=== PATIENT | male | born 1930 | race Caucasian/White ===

== ENCOUNTER 2018-02-26 01:17 | Inpatient (IN) | payer OTHER ==
[~2018-02-26] VITALS: Ht 175.3 cm; Wt 106.7 kg
[~2018-02-26 01:17] MED LIST: AMLODIPINE BESYL5 M1 PO; ASPIRIN EC81 M1 PO; ATORVASTATIN CA80 M1 PO; FUROSEMIDE40 M1 PO; LOSARTAN POTAS100 M1 PO; MAGNESIUM500 M2 PO; METAMUCIL PACK3.4 GM PO; MULTIVITAMINS1 EAC9 PO; NOVOLIN R100 UNIT/1 SC; TOPROL XL25 M1 PO
--- NOTE | 2018-02-26 10:23 | Operative Report ---
Operative/Inv Procedure Report Surgery Date: 02/26/18 Name of Procedure: #1 removal of previously placed unicompartmental arthroplasty Revision total knee arthroplasty Pre-Operative Diagnosis: #1 history of previously placed unicompartmental arthroplasty Fractured femoral component Post-Operative Diagnosis: Same Estimated Blood Loss: less than 50ml Surgeon/Robotics Application Engineer: Layo SAMAYOA,Frantz José PA Anesthesia: block Implants: Lolis triathlon total knee system-size 4 cruciate retaining femoral component, size 4 tibial component with a 10 mm augment on the medial side, 31 patella, 11 mm cruciate retaining polyethylene Drains: None Specimens: Fracture femoral component, tibial component of the unicompartmental arthroplasty and the polyethylene insert Bone from the distal femur and proximal tibia and patella Culture sensitivity, Gram stain synovial fluid Microbiology: Urine Tourniquet: 73 minutes Complications: None Condition: Stable Operative Indication: Patient is an 87-year-old man who has a history of a unicompartmental arthroplasty in the right side in the early 1999. This was done in [place]. Recently patient developed increased pain and swelling of the right knee. Evaluation was done at our office. The x-rays revealed a fractured femoral component. Due to these findings as well as patient's severe symptoms, recommendation for removal of unicompartmental arthroplasty and revision to a total knee arthroplasty was made. Risks benefits and expectations of the surgical procedure were discussed which included but were not limited to persistent knee pain, need for subsequent surgery, infection, DVT, injury to blood vessel or nerve, anesthesia risks. Patient wished to proceed with the revision surgery Operative/Procedure Note Note: Patient was brought to the operating room and transferred to the operating table. Once under appropriate anesthesia the right lower extremity was prepped and draped in standard fashion. Reoperative IV antibiotics were given prophylactically. The previously medial parapatellar incision needed to be used. The incision was taken down sharply to the retinaculum. A medial retinacular approach was used to enter the knee joint. Soft tissue balancing medially was completed for proper exposure. The components were identified the posterior condylar portion of the femoral component was completely loose. It was removed by hand. The anterior aspect of the same component was dislodged easily with the osteotome. This was done with minimal bone loss. I removed the cement mantle from the distal femur. I turned my attention to the tibia. I used an osteotome to undermine the component. It came out as one piece. It was removed and taken to the back table for sending to pathology. Cement mantle was removed. Copious irrigation followed. There was significant bone loss from the original bone cut from his original surgery. This would need to be augmented. There was not conducive to cutting across to the lateral side as a flat cut. Therefore step cut was made a 10 mm augment would need to be used on the medial side. The lateral side was cut as a primary cut in the medial side was cut as a freshening cut only later on the case. I proceeded to finish the preparation of the femur. This femur was sized to a size 4. Size 4 cutting guide was pinned in place and cuts were made while protecting soft tissues as always. I then turned my attention to the tibia.. I use an intramedullary tibial guide to pin the cutting block in position for a standard cut from the lateral plateau and a freshening cut on the medial plateau which also would need to be augmented a 10 mm which was confirmed during this part of the case. Cuts were made soft tissues were protected. The PCL was recessed appropriately and was preserved. Trial was used at that point to determine soft tissue balancing. I was satisfied with the balancing. I then turned my attention back to the patella. The patella was measured and the appropriate thickness was removed and then replaced the size 31 patella. The 3 lug holes were drilled. The knee through range of motion. I was satisfied with the tracking. However the tibial component would need to be finished. The tibial punch was used after the reaming was completed in the proximal aspect of the tibia. There was no night need for any offsetting based on my findings. Once this was done all this was removed from the knee. Copious irrigation the followed. Cement was being mixed on the back table and the tibial component was constructed on the back table. Once the cement was ready was applied to the dry clean bony surfaces of the tibia. The size 4 tibial component was impacted in place with the appropriate rotation based on previous placement of the trial. This was impacted in place excess cement was removed with curettes. Cement was applied to the dry clean bony surfaces of distal femur. The size 4 femoral component was impacted in place and excess cement was removed with curettes. The polyethylene trial was impacted in place and the knee was taken out to full extension. Cement was applied to the dry clean bony surfaces of the patellar component. Patella was impacted in place and excess cement was removed with a knife. Once the cement was hardened to the knee through range of motion. I was satisfied with the 11 mm polyethylene insert. Full extension. Good mid flexion stability. Full flexion to gravity. Excellent patellofemoral tracking. After copious irrigation the trial polyethylene was removed. The tibial tray was irrigated. I made sure there was no remaining soft tissue, bone fragments or cement fragments within the tibial tray and then I impacted the definitive size 11 mm cruciate retaining polyethylene. Again stability was confirmed. The locking mechanism was confirmed. Hemostasis was obtained after the tourniquet was deflated at 73 minutes. Patient did have some significant third spacing and some edematous changes preoperatively and this was noted. After copious irrigation and hemostasis being obtained the neck was closed with interrupted #1 Vicryl sutures which included the quadricep extension. Subcutaneous tissues closed in 2 layers with 2-0 Vicryl and skin was closed with a running 3-0 Vicryl suture with the knee in flexion. Appropriate dressings were applied and patient was awakened and taken to recovery room in good condition. Blood loss was 100 mL Discharge Disposition: PACU
--- NOTE | 2018-02-26 14:59 | Cons- Medical ---
Emily Jaffemichelet 02/26/18 1458: General Information and HPI Consulting Request Date of Consult: 02/26/18 Requested By: Layo SAMAYOA,Arnav Reason for Consult: postop bradycardia Source of Information: patient Exam Limitations: no limitations History of Present Illness: Mr. Conley is a 87 YO male with past medical history of insulin-dependent diabetes mellitus, hyperlipidemia, hypertension is day 0 status post removal of previously placed unicompartmental arthroplasty, revision total knee arthroplasty for fractured femoral component after having recent onset of increased pain and swelling of the right knee. He was evaluated for this at outpatient orthopedic office by after x-rays revealed a fractured femoral component. It was decided to plan for removal of unicompartmental arthroplasty and revision to a total knee arthroplasty due to severe symptoms and findings of fractured femoral component. The medical team was consulted postoperatively due to findings of bradycardia postoperatively and for medical management of his chronic medical issues. Allergies/Medications Allergies: Coded Allergies: No Known Allergies (02/16/18) Home Med List: Amlodipine Besylate 5 MG TABLET 1 TAB PO DAILY CARDIAC (Reported) Aspirin (Ecotrin*) 81 MG TABLET.DR 1 TAB PO 3XW CARDIAC (Reported) Atorvastatin Calcium 80 MG TABLET 1 TAB PO DAILY CHOLESTEROL (Reported) Furosemide 40 MG TABLET 1 TAB PO DAILY CARDIAC (Reported) Insulin Regular (Novolin R Inj) 1,000 UNITS/10 ML DOTTY 76 UNITS SC SEE ADMIN CRITERIA DIABETES (Reported) Losartan Potassium 100 MG TABLET 1 TAB PO DAILY CARDIAC (Reported) Magnesium Oxide (Magnesium) 500 MG CAPSULE 1 CAP PO BID SUPPLEMENT (Reported) Metoprolol Succ XL (Toprol XL) 25 MG TAB 1 TAB PO DAILY CARDIAC (Reported) Multiple Vitamin (Multivitamins) 1 EACH TABLET 1 TAB PO DAILY SUPPLEMENT ( Reported) Psyllium Hydrophylic Muciloid (Metamucil Packet) 3.4 GRAM POWD.PACK SUPPLEMENT (Reported) Current Medications: Current Medications Sig/Aubrey Start time Last Medication Dose Route Stop Time Status Admin Acetaminophen 0 .STK-MED ONE 02/26 858 DC PO Acetaminophen 650 MG ONCE 02/26 0000 NR PO 02/26 2359 Celecoxib 400 MG ONCE 02/26 0000 NR PO 02/26 2359 Dexamethasone 0 .STK-MED ONE 02/26 858 DC .ROUTE Fentanyl Citrate 0 .STK-MED ONE 02/26 1017 DC .ROUTE Gabapentin 0 .STK-MED ONE 02/26 0859 DC PO Gabapentin 300 MG ONCE 02/26 0000 NR PO 02/26 235 Midazolam HCl 0 .STK-MED ONE 02/26 1017 DC .ROUTE Morphine Sulfate 0 .STK-MED ONE 02/26 1018 DC .ROUTE Oxycodone HCl 0 .STK-MED ONE 02/26 0858 DC PO Oxycodone HCl 10 MG ONCE 02/26 0000 NR PO 02/26 2359 Scopolamine HBr 0 .STK-MED ONE 02/26 0858 DC TOP Scopolamine HBr 1 PAT ONCE 02/26 0000 NR TOP 02/26 235 Tranexamic Acid 0 .STK-MED ONE 02/26 1035 DC IV Vancomycin HCl 1,750 MG ONCE 02/26 0000 NR Sodium Chloride 500 ML IV 02/26 2359 Warfarin Sodium 7.5 MG COUMADIN 1700 ONE 02/26 1700 UNVr PO 02/26 1701 Review of Systems Review of Systems Constitutional: Denies: chills, diaphoresis, fever, malaise. EENTM: Denies: blurred vision, double vision, visual changes. Cardiovascular: Reports: edema, peripheral edema. Denies: orthopena. Respiratory: Reports: cough. Denies: hemoptysis, orthopnea, short of breath, sputum production, stridor. GI: Denies: abdominal pain, bloating, constipation. Genitourinary: Reports: no symptoms. Musculoskeletal: Reports: joint pain. Skin: Reports: no symptoms. Past History Surgical History Surgical History: hemiarthroplasty Psychosocial History Services at Home: None Smoking Status: Unknown If Ever Smoked Functional Ability ADLs Independent: dressing, eating, toileting, bathing. Ambulation: independent IADLs Independent: shopping, housework, finances, telephone. Exam & Diagnostic Data Last 24 Hrs of Vital Signs/I&O .. Physical Exam General Appearance: alert, awake, comfortable Head: atraumatic, normal appearance Eyes: Bilateral: normal appearance. Neck: normal inspection, supple Respiratory: normal breath sounds, chest non-tender Cardiovascular: regular rate/rhythm Gastrointestinal: normal bowel sounds Extremities: normal inspection Last 24 Hrs of Labs/Eduar: Laboratory Tests 02/26/18 1114: Lymphocytes 22, % Normal PMNs 33, Misc Hematology Test 45, Fluid WBC 594 H, Fld Total RBCs Counted 87682 H Diagnostic Data EKG Results sinus bradycardia, rate into 50's Assessment/Plan Assessment/Plan In summary,Mr. Conley is a 87 YO male with past medical history of insulin- dependent diabetes mellitus, hyperlipidemia, hypertension is day 0 status post removal of previously placed unicompartmental arthroplasty, revision total knee arthroplasty for fractured femoral component after having recent onset of increased pain and swelling of the right knee. He was evaluated for this at outpatient orthopedic office by after x-rays revealed a fractured femoral component. It was decided to plan for removal of unicompartmental arthroplasty and revision to a total knee arthroplasty due to severe symptoms and findings of fractured femoral component. Medical team has been consutled due to postop bradycardia and for management of hs chronic medica issues. Problem list along with assessment and plan. #Bradycardia * Continue to monitor on case monitor. * Check EKG and troponin, hold beta-jarvis. * Check TSH, free T4. * Check cbc, Bep today. * EKG revealed sinus bradycardia , no evidence of any block. * d/c scopolamine patch - disucssed with nursing. * no symptoms as such. * cardio consult #hypertension. * Continue to monitor vitals, continue blood pressure monitoring. * He takes amlodipine 5 mg 1 tablet daily and losartan 100 mg daily, followed by Toprol XL 25 mg daily. * We will watch the blood pressure today and resume the medications once blood pressure more stable, starting with amlodipine first and losartan. * We will hold the beta-jarvis due to bradycardia. # History of hyperlipidemia. * Continue atorvastatin 80 mg p.o. daily once can tolerate by mouth. # h/o IDDM * ct to monitor FS * Novolin SS * At home he takes 72 units of novolin in the morning with no basal insulin, as per his PCP recommendation, here we will start medium dose SS for now and then adjust as needed per his FS. * CC-3 diet * once can eat and tolerate PO, switch to novolog SS * hold all antidiabetic medications. Problem List: 1. Status post right knee replacement 2. Diabetes mellitus type 1 3. History of - hypertension 4. Hypercholesterolemia Consult Acknowledgment - Thank you for your consult request. Alan SAMAYOA,Nisa 02/26/18 0043: Assessment/Plan Consult Acknowledgment - Thank you for your consult request. Attending MD Review Statement Attending Statement Attending MD Statement: examined this patient, discuss w/resident/PA/HOTEL GUEST SERVICE AGENT, agreed w/resident/PA/HOTEL GUEST SERVICE AGENT, discussed with family, reviewed EMR data (avail), discussed with nursing, reviewed images, amended to note Attending Assessment/Plan: 87 y/o M with pmh sig for insulin-dependent diabetes mellitus, hyperlipidemia, hypertension, status post revision of right total knee arthroplasty for fractured femoral component postop day 0. Medicine consult was obtained secondary to patient found bradycardic postoperatively. Apparently patient's heart rate went down to 50s. Currently his heart rate is 68. Reviewing the recent nuclear stress test report it was evident that patient's heart rate is likely in the lower range at baseline. His heart rate was in 50s on the nuclear stress imaging. Of note patient also takes beta-jarvis which she took this morning. Patient himself denies any chest pain, shortness of breath, palpitations, dizziness. There is no current EKG in the chart yet. Vital Signs Date Time Temp Pulse Resp B/P B/P Pulse O2 O2 Flow FiO2 Mean Ox Delivery Rate 02/26 1637 97.6 68 18 128/50 97 Nasal 2.0L Cannula on exam; aox3, nad. cv; s1,s2, rrr, randi. resp; clear abd; soft, nt, bs+ ms; right le is wrapped in JOHN wrap. Laboratory Tests 02/26 1114 Hematology Lymphocytes (%) 22 % Normal PMNs (%) 33 Misc Hematology Test (%) 45 Other Body Source Fluid WBC (0 - 5 /CUMM) 594 H Fld Total RBCs Counted (0 /CUMM) 40998 H Assessment and recommendations: 87 y/o M with pmh sig for insulin-dependent diabetes mellitus, hyperlipidemia, hypertension, status post revision of right total knee arthroplasty for fractured femoral component postop day 0. Medicine consult was obtained secondary to patient found bradycardic postoperatively. Apparently patient's heart rate went down to 50s. Currently his heart rate is 68. Blood pressure is stable. We recommend to hold the beta-jarvis for now. Please check an EKG. If there is any evidence of heart block, patient will require echocardiogram. Please consult cardiology. Please check thyroid function studies. Monitor on telemetry. Of note patient also has a scopolamine patch behind his left ear. I recommend to discontinue that. Scopolamine can also cause bradycardia. Patient takes metformin and insulin Novolin at home. He will be continued on sliding scale insulin and monitor Accu-Cheks. If blood sugars start to run high then will consider adding a basal insulin. Continue antihypertensives if his blood pressure allows. DVT prophylaxis management postoperatively will be up to the orthopedic team. Recommend ambulation with physical therapy and incentive spirometry. Further postop care will be up to orthopedic. Thank you very much for allowing us to participate in the care of this patient. Will follow along with you
--- NOTE | 2018-02-26 15:12 | Surgical Discharge Summary ---
Visit Information Visit Dates Admission Date: 02/26/18 Discharge Date: 03/01/2018 History of Present Illness Chief Complaint: right knee pain Medical History History of MRSA: No History of VRE: No History of CDIFF: No Isolation History: Standard Pneumonia Vaccine: 04/11/10 Influenza Vaccine: 04/11/12 Surgical History Pertinent Surgical History: knee replacement Psychosocial History Who Do You Live With? Family Services at Home: None What is Your Primary Language? Sami Review of Systems: see H&P Hospital Course Course Attending Physician: Layo SAMAYOA,[facility] Primary Care Physician: Jose SAMAYOA,[place] Hospital Course: Patient was admitted to the hospital for an elective revision of right total knee replacement. The procedure was tolerated well and patient was transferred to a general surgical floor. Diet was advanced and tolerated. The patient was evaluated and treated by physical therapy. He was slow to ambulate. Post op he experienced some bradycardia with a heart rate in the 50's. He was evaluated by cardiology and the medical service. It was felt this was temporary and it was recommended to hold the metoprolol which can be titrated as an outpatient. He was able to move his bowels post op. He was cleared by PT for home PT. At the time of hospital discharge, the vital signs were stable, neurovascular status was intact, and pain was controlled with the use of oral pain medications. He was on coumadin at discharge with a therapeutic INR which will be monitored by home nursing. Allergies: Coded Allergies: No Known Allergies (02/16/18) Significant Procedures: 02/26/18: revision right total knee replacement Disposition Summary Disposition Principal Diagnosis: pain r/t previous right knee replacement Additional Diagnosis: sp revision right total knee replacement, bradycardia Discharge Disposition: home health services Discharge Instructions General Discharge Information Code Status: Full Code Patient's Diet: resume previous diet Patient's Activity: wbat Follow-Up Instructions/Appts: Call to be seen in 2 weeks Medications at Discharge Discharge Medications: Stop taking the following medications: Metoprolol Succ XL (Toprol XL) 25 MG TAB ORAL DAILY Continue taking these medications: Insulin Regular (Novolin R Inj) 1,000 UNITS/10 ML DOTTY 76 Units SC SEE INSTRUCTIONS Amlodipine Besylate (Amlodipine Besylate) 5 MG TABLET 1 Tablet ORAL DAILY Losartan Potassium (Losartan Potassium) 100 MG TABLET 1 Tablet ORAL DAILY Furosemide (Furosemide) 40 MG TABLET 1 Tablet ORAL DAILY Atorvastatin Calcium (Atorvastatin Calcium) 80 MG TABLET 1 Tablet ORAL DAILY Aspirin (Ecotrin*) 81 MG TABLET.DR 1 Tablet ORAL Three times a week Multiple Vitamin (Multivitamins) 1 EACH TABLET 1 Tablet ORAL DAILY Magnesium Oxide (Magnesium) 500 MG CAPSULE 1 Capsule ORAL TWICE DAILY Psyllium Hydrophylic Muciloid (Metamucil Packet) 3.4 GRAM POWD.PACK Metformin HCl (Metformin HCl) 1,000 MG TABLET 1 Tablet ORAL TWICE DAILY Start taking the following new medications: Oxycodone HCl/Acetaminophen (Percocet 5-325 MG Tablet) 5 MG-325 MG TABLET 1-2 Tablet ORAL EVERY 4 HOURS NEEDED as needed for PAIN Qty = 30 No Refills Acetaminophen (Tylenol Extra Strength) 500 MG TABLET 1 Tablet ORAL THREE TIMES DAILY as needed for MILD PAIN Qty = 30 No Refills Instructions: NOT TO EXCEED 4000MG IN 24HRS, ALTERNATE WITH PERCOCET NEEDED
--- NOTE | 2018-02-26 15:17 | Patient Discharge Instructions ---
Discharge Instructions General Discharge Information You were seen/treated for: right knee pain r/t previous right knee replacement You had these procedures: revision right knee replacement Watch for these problems: Increasing pain despite the use of pain medication Increasing redness, warmth or swelling Drainage of any type from incision Inability to bear weight on operative leg Persistent nausea and vomiting Fever greater than 101.5 degrees Call Surgeon to remove: Other Do not soak the wound: Yes Daily wet to dry dressings: No No bath, but you may shower: Yes Other wound care: Keep wound clean and dry. No ointments or lotions of any type on or near incision at any time. Your dressing will be changed by your nurse on the second day after your surgery. Daily dry dressing changes are recommended each day thereafter. Do not soak your wound in a bath or pool at any time until otherwise indicated by your surgeon. You may shower. Special Instructions: Stop taking Metoprolol per Dr. Wheeler. FU with bicycle taxi driver in 1-2 weeks as they may want to further adjust cardiac medication. Follow up with Dr Aris downs 2 weeks for diabetic management Coumadin to be dosed according to INR. Goal INR 2-2.5 Diet Continue normal diet: Yes Activity Full Activity/No Limits: No Activity Self Limited: Yes Pounds, do NOT lift more than: 10 (x 2weeks) Activity Limited to: Weight bear as tolerated (with rolling walker) Additional ACTIVITY Info: use assistive devices as needed Acute Coronary Syndrome Inclusion Criteria At DC or during hospital stay patient has or had the following: ACS DIAGNOSIS No Discharge Core Measures Meds if any: Prescribed or Continued at Discharge Meds if any: NOT Prescribed or Continued at Discharge Congestive Heart Failure Inclusion Criteria At DC or during hospital stay patient has or had the following: CHF DIAGNOSIS No Discharge Core Measures Meds if any: Prescribed or Continued at Discharge Meds if any: NOT Prescribed or Continued at Discharge Cerebrovascular accident Inclusion Criteria At DC or during hospital stay patient has or had the following: CVA/TIA Diagnosis No Discharge Core Measures Meds if any: Prescribed or Continued at Discharge Meds if any: NOT Prescribed or Continued at Discharge Venous thromboembolism Inclusion Criteria VTE Diagnosis No VTE Type NONE VTE Confirmed by (Test) NONE Discharge Core Measures - Per Current guidelines, there needs to be overlap - treatment for the first 5 days of Warfarin therapy. - If discharged on Warfarin prior to 5 days of - overlap therapy, the patient will need to be - assessed for post discharge needs including - *Post discharge parental anticoagulation - *Warfarin and/or parental anticoagulation education - *Follow up date to check INR post discharge At least 5 days overlap therapy as Inpatient No Meds if any: Prescribed or Continued at Discharge Note: Overlap Therapy is Warfarin and Anticoagulant Meds if any: NOT Prescribed or Continued at Discharge
--- NOTE | 2018-02-26 15:20 | Admission Core Measures ---
Acute Coronary Syndrome (CM) ACS Core Measures Acute Coronary Syndrome Diagnosis No Congestive Heart Failure (NEW) CHF Core Measures Congestive Heart Failure Diagnosis No Cerebrovascular Accident CVA Core Measures CVA/TIA Diagnosis No Venous Thromboembolism VTE Core Rayne (View Protocol) VTE Risk Factors Surgery No Mechanical VTE Prophylaxis d/t N/A MechProphylax Ordered No VTE Pharm Prophylaxis d/t NA PharmProphylax ordered Problem List As ranked by this Provider includes Assessment & Plan 1. Status post right knee replacement 2. Primary osteoarthritis of right knee HOME MEDS Home Med List Amlodipine Besylate 5 MG TABLET 1 TAB PO DAILY CARDIAC (Reported) Aspirin (Ecotrin*) 81 MG TABLET.DR 1 TAB PO 3XW CARDIAC (Reported) Atorvastatin Calcium 80 MG TABLET 1 TAB PO DAILY CHOLESTEROL (Reported) Furosemide 40 MG TABLET 1 TAB PO DAILY CARDIAC (Reported) Insulin Regular (Novolin R Inj) 1,000 UNITS/10 ML DOTTY 76 UNITS SC SEE ADMIN CRITERIA DIABETES (Reported) Losartan Potassium 100 MG TABLET 1 TAB PO DAILY CARDIAC (Reported) Magnesium Oxide (Magnesium) 500 MG CAPSULE 1 CAP PO BID SUPPLEMENT (Reported) Metoprolol Succ XL (Toprol XL) 25 MG TAB 1 TAB PO DAILY CARDIAC (Reported) Multiple Vitamin (Multivitamins) 1 EACH TABLET 1 TAB PO DAILY SUPPLEMENT ( Reported)
--- NOTE | 2018-02-26 16:36 | PN- Orthopedic ---
Subjective Subjective: Pt denies any pain at this time and says he is feeling well. Denies any nausea, vomiting, CP, SOB, dizziness or headache. Has not been out of bed yet. Awaiting and eager for PT to begin. Objective Vital Signs and I&Os See EMR. HR noted to be 40's-50's on telemertry monitor. Physical Exam: General: Elderly male, lying in bed, NAD. Nasal cannula in place. Cardio: Bradycardic. Regular rhyhtm. S1 and S2 heard. No murmurs, rubs or gallops. Pulmonary: Symmetric, non-labored rise and fall of the chest. Clear breath sounds in anterior and posterior lung guerin. No wheezes, rhonchi or rales. Abdomen: Soft, non-tender, non-distended. Normoactive bowel sounds heard. Extremities: Dressing was clean, dry, and intact on the right leg with an ice pack in place. Gross sensation intact and equal in both feet. Plantar and dorsiflexion 5/5 bilaterally. Dorsalis pedis pulses palpable. Posterior tibialis pulses not appreciated. Calves are soft and non-tender to palpation bilaterally. 2+ edema noted on the feet bilaterally. Current Medications: Current Medications Sig/Aubrey Start time Last Medication Dose Route Stop Time Status Admin Acetaminophen 0 .STK-MED ONE 02/26 858 DC PO Acetaminophen 650 MG ONCE 02/26 0000 DC PO 02/26 2359 Amlodipine Besylate 5 MG DAILY 02/27 900 UNVr PO Atorvastatin Calcium 80 MG DAILY 02/27 900 UNVr PO Celecoxib 400 MG DAILY 02/27 900 UNir PO Celecoxib 400 MG ONCE 02/26 0000 DC PO 02/26 2359 Dexamethasone 0 .STK-MED ONE 02/26 0858 DC .ROUTE Docusate Sodium 100 MG BID PRN 02/26 1100 UNVr PO Fentanyl Citrate 0 .STK-MED ONE 02/26 1017 DC .ROUTE Furosemide 40 MG DAILY 02/27 900 UNVr PO Gabapentin 0 .STK-MED ONE 02/26 0859 DC PO Gabapentin 300 MG ONCE 02/26 0000 DC PO 02/26 235 Insulin Aspart 0 TIDAC 02/26 1200 UNVr SC Losartan Potassium 100 MG DAILY 02/27 0900 UNVr PO Magnesium Oxide 500 MG BID 02/26 2100 UNVr PO Midazolam HCl 0 .STK-MED ONE 02/26 1017 DC .ROUTE Morphine Sulfate 2 MG Q3P PRN 02/26 1615 UNVr IV Morphine Sulfate 0 .STK-MED ONE 02/26 1018 DC .ROUTE Ondansetron HCl 4 MG Q6P PRN 02/26 1615 UNVr IV Oxycodone HCl 0 .STK-MED ONE 02/26 0858 DC PO Oxycodone HCl 10 MG ONCE 02/26 0000 DC PO 02/26 2359 Oxycodone/ 1 TAB Q4P PRN 02/26 1615 UNVr Acetaminophen PO Oxycodone/ 2 TAB Q4P PRN 02/26 1615 UNVr Acetaminophen PO Polyethylene Glycol 17 GM DAILY PRN 02/26 1100 UNVr PO Scopolamine HBr 0 .STK-MED ONE 02/26 0858 DC TOP Scopolamine HBr 1 PAT ONCE 02/26 0000 DC TOP 02/26 2359 Senna/Docusate Sodium 2 TAB AT BEDTIME NEED.. 02/26 161 UNVr PO Sodium Chloride 1,000 ML .[id number] 02/26 1615 UNVr IV Tranexamic Acid 0 .STK-MED ONE 02/26 1035 DC IV Vancomycin HCl 1,750 MG ONCE ONE 02/26 2200 UNir Sodium Chloride 250 ML IV 02/26 2259 Vancomycin HCl 1,750 MG ONCE 02/26 0000 DC Sodium Chloride 500 ML IV 02/26 2359 Warfarin Sodium 7.5 MG COUMADIN 1700 ONE 02/26 1700 AC PO 02/26 1701 Assessment/Plan Assessment/Plan A: Pt is an 87 year old male POD #0 s/p right total knee revision, with a past medical history including DM, HTN and PVCs. Pt noted to be bradycardic post-op, asymptomatic, pre-operatively had extensive cardiac workup that was negative. Pain is well controlled. P: Appreciate medical input. Will follow up labs and EKG. Pt placed on telemetry. Pain control as needed. Took Beta Aldo this morning, no other cardiac meds to be given tonight. Will reassess heart rate in the am. PT to see patient in morning, WBAT. Pt on coumadin, monitor PT and INR. 7.5 mg tonight. Will discuss with attending. Core Measures Venous Thromboembolism VTE Risk Factors Surgery No Mechanical VTE Prophylaxis d/t N/A MechProphylax Ordered No VTE Pharm Prophylaxis d/t NA PharmProphylax ordered
[2018-02-26 16:37] VITALS: BP 128/50
[2018-02-26 17:45] LABS: ABSOLUTE BASOPHIL COUNT 0 /CUMM (0.0-0.2); ABSOLUTE EOSINOPHIL COUNT 0 /CUMM (0.0-0.7); ABSOLUTE GRANULOCYTE CT 11.7 /CUMM (1.4-6.5); ABSOLUTE LYMPH COUNT 0.7 /CUMM (1.2-3.4); ABSOLUTE MONOCYTE COUNT 0.2 /CUMM (0.10-0.60); BASOPHIL % 0.1 % (0.0-2.0); EOSINOPHIL % 0.1 % (0-5); HEMATOCRIT 36.6 % (42-52); MEAN CORPUSCULAR HGB CONC 32.8 G/DL (33.0-37.0); MEAN CORPUSCULAR VOLUME 91.3 FL (80.0-94.0); MEAN PLATELET VOLUME 8.8 FL (7.4-10.4); PLATELET COUNT 221 /CUMM (130-400); RBC DISTRIBUTION WIDTH 14.5 % (11.5-14.5); RED BLOOD CELL CT 4.01 /CUMM (4.70-6.10); WHITE BLOOD CELL COUNT 12.6 /CUMM (4.8-10.8)
[2018-02-26 18:44] LABS: GRANULOCYTE % 92.6 % (42.2-75.2)
[2018-02-26 22:20] VITALS: BP 130/58
[2018-02-27 02:00] VITALS: BP 114/52
[2018-02-27 06:31] VITALS: BP 124/62
--- NOTE | 2018-02-27 07:27 | PN- Medicine Consult ---
Royal Jaffe 02/27/18 0727: Assessment/PlanMedical Consult Assessment/Plan Assessment: This a 87-year-old male with past medical history of insulin-dependent diabetes mellitus, hyperlipidemia, hypertension, status post removal of previously placed unicompartmental arthroplasty, revision total knee arthroplasty for fractured femoral component day 1 today after having worsening pain and swelling of the right knee. Medical team was consulted for management of bradycardia and other chronic medical issues. He seems to be doing good overall, his EKG showed sinus bradycardia, his heart rate continues to be in the 50s today morning, TSH and free T4 were within normal limit, he did not seem to have any symptoms secondary to bradycardia, no evidence of any block on the EKG, it was noted that his sugars were running high about 300 last night as well as this morning. His insulin regimen will need to be adjusted, perhaps we will add basal insulin in addition to medium dose sliding scale. Otherwise his vitals are stable. Plan: Mr. Conley is a 87 YO male with past medical history of insulin-dependent diabetes mellitus, hyperlipidemia, hypertension is day 1 status post removal of previously placed unicompartmental arthroplasty, revision total knee arthroplasty for fractured femoral component after having recent onset of increased pain and swelling of the right knee. Medical team has been consutled due to postop bradycardia and for management of hs chronic medica issues. Problem list along with assessment and plan. #Bradycardia * Continue to monitor on engine monitor. * Check EKG and troponin - negative, ct to hold beta-jarvis. * Check TSH, free T4,TSH and Free t4 WNL * Check cbc, Bep today. * EKG revealed sinus bradycardia , no evidence of any block. * cardio consult #hypertension. * Continue to monitor vitals, continue blood pressure monitoring. * He takes amlodipine 5 mg 1 tablet daily and losartan 100 mg daily. * We will watch the blood pressure today and resume the medications once blood pressure more stable, starting with amlodipine first and losartan. * We will hold the beta-jarvis due to bradycardia. # History of hyperlipidemia. * Continue atorvastatin 80 mg p.o. daily once can tolerate by mouth. # h/o IDDM * ct to monitor FS * Novolin SS * At home he takes 72 units of novolin in the morning with no basal insulin, as per his PCP recommendation, here we will start medium dose SS for now and then adjust as needed per his FS. * CC-3 diet * once can eat and tolerate PO, switch to novolog SS * hold all antidiabetic medications. Problem List: 1. Diabetes mellitus type 1 2. History of - hypertension 3. Hypercholesterolemia 4. Primary osteoarthritis of right knee 5. Status post right knee replacement Subjective Subjective: I have seen and examined the patient this morning, no new complaints. Review of Systems Constitutional: Reports: see HPI. Objective Last 24 Hrs of Vital Signs/I&O Vital Signs Date Time Temp Pulse Resp B/P B/P Pulse O2 O2 Flow FiO2 Mean Ox Delivery Rate 02/27 1015 53 134/50 02/27 1014 53 134/50 02/27 0631 98.1 64 18 124/62 95 Nasal Cannula 02/27 0200 97.8 65 20 114/52 93 Room Air 02/26 2220 97.8 57 18 130/58 96 Nasal Cannula 02/26 1637 97.6 68 18 128/50 97 Nasal 2.0L Cannula Intake & Output 02/27 1600 02/27 0800 02/27 0000 Intake Total 600 600 Output Total 350 400 Balance 250 200 Intake, IV 600 600 Output, Urine 350 400 Current Medications: Current Medications Sig/Aubrey Start time Last Medication Dose Route Stop Time Status Admin Acetaminophen 650 MG ONCE 02/26 0000 DC PO 02/26 2359 Amlodipine Besylate 5 MG DAILY 02/27 09 AC PO Atorvastatin Calcium 80 MG DAILY 02/27 0900 AC 02/27 PO 1015 Celecoxib 400 MG DAILY 02/27 0900 AC 02/27 PO 1015 Celecoxib 400 MG ONCE 02/26 0000 DC PO 02/26 2359 Docusate Sodium 100 MG BID PRN 02/26 1100 AC PO Furosemide 40 MG DAILY 02/27 0900 AC 02/27 PO 1015 Gabapentin 300 MG ONCE 02/26 0000 DC PO 02/26 2359 Insulin Aspart 0 TIDAC 02/26 1700 AC 02/27 SC 0847 Insulin Aspart 0 TIDAC 02/26 1200 DC SC Losartan Potassium 100 MG DAILY 02/27 0900 AC PO Magnesium Oxide 400 MG BID 02/26 2100 AC 02/27 PO 1015 Morphine Sulfate 2 MG Q3P PRN 02/26 1615 AC IV Ondansetron HCl 4 MG Q6P PRN 02/26 1615 AC IV Oxycodone HCl 10 MG ONCE 02/26 0000 DC PO 02/26 2359 Oxycodone/ 1 TAB Q4P PRN 02/26 1615 AC 02/27 Acetaminophen PO 0803 Oxycodone/ 2 TAB Q4P PRN 02/26 1615 AC Acetaminophen PO Polyethylene Glycol 17 GM DAILY PRN 02/26 1100 AC PO Scopolamine HBr 1 PAT ONCE 02/26 0000 DC TOP 02/26 2359 Senna/Docusate Sodium 2 TAB AT BEDTIME NEED.. 02/26 161 AC PO Sodium Chloride 1,000 ML .[id number] 02/26 1615 DC 02/26 IV 1736 Vancomycin HCl 1,750 MG ONCE ONE 02/26 2200 DC 02/26 Sodium Chloride 500 ML IV 02/26 235 2207 Vancomycin HCl 1,750 MG ONCE 02/26 0000 DC Sodium Chloride 500 ML IV 02/26 235 Warfarin Sodium 7.5 MG COUMADIN 1700 ONE 02/26 1700 DC 02/26 PO 02/26 1701 1819 Results Last 24 Hrs Lab/Eduar Results: Laboratory Tests 02/27/18 0700: Anion Gap 6, Estimated GFR > 60, BUN/Creatinine Ratio 26.0 H, PT 12.1, INR 1.11 , CBC w Diff NO MAN DIFF REQ, RBC 3.46 L, MCV 91.3, MCH 30.5, MCHC 33.4, RDW 14.0, MPV 8.6, Gran % 84.8 H, Lymphocytes % 7.1 L, Monocytes % 8.0, Eosinophils % 0, Basophils % 0.1, Absolute Granulocytes 11.2 H, Absolute Lymphocytes 0.9 L, Absolute Monocytes 1.1 H, Absolute Eosinophils 0, Absolute Basophils 0 02/26/18 170: Anion Gap 7, Estimated GFR > 60, BUN/Creatinine Ratio 21.1, Troponin I < 0.01, TSH 0.566, Free T4 1.47, CBC w Diff NO MAN DIFF REQ, RBC 4.01 L, MCV 91.3, MCH 30.0, MCHC 32.8 L, RDW 14.5, MPV 8.8, Gran % 92.6 H, Lymphocytes % 5.6 L, Monocytes % 1.6 L, Eosinophils % 0.1, Basophils % 0.1, Absolute Granulocytes 11.7 H, Absolute Lymphocytes 0.7 L, Absolute Monocytes 0.2, Absolute Eosinophils 0, Absolute Basophils 0 02/26/18 1114: Lymphocytes 22, % Normal PMNs 33, Misc Hematology Test 45, Fluid WBC 594 H, Fld Total RBCs Counted 46438 H Microbiology 02/26 1114 BODY FLUID: Body Fluid Culture - RES 02/26 111 BODY FLUID: Gram Stain - RES Alan SAMAYOA,Nisa 02/27/18 1142: Attending MD Review Statement Attending Sign Off Attending Cosign Statement: I have: examined this patient, reviewed aval EMR data, personally reviewd images, discussd w/resident/PA/SCHEDULING CLERK, discussed mgmt plan w/alcides, discussed mgmt plan w/pt, agreed w/resident/PA/SCHEDULING CLERK, amended to note. Other Findings: Patient seen and examined, overall doing better. He did complain of some pain earlier in the morning but currently he is doing better. His heart rate remained in 40s-50s range overnight. His thyroid functions are normal. His Beta jarvis was held. Vital Signs Date Time Temp Pulse Resp B/P B/P Pulse O2 O2 Flow FiO2 Mean Ox Delivery Rate 02/27 1015 53 134/50 02/27 1014 53 134/50 02/27 0631 98.1 64 18 124/62 95 Nasal Cannula 02/27 0200 97.8 65 20 114/52 93 Room Air 02/26 2220 97.8 57 18 130/58 96 Nasal Cannula 02/26 1637 97.6 68 18 128/50 97 Nasal 2.0L Cannula on exam; aox3, nad. cv; s1,s2, rrr, bradycardic. resp; clear abd; soft, nt, bs+ ext; + JOHN wrap on rle. Laboratory Tests 02/27 02/26 0700 1700 Chemistry Sodium (137 - 145 mmol/L) 136 L 139 Potassium (3.5 - 5.1 mmol/L) 5.0 4.6 Chloride (98 - 107 mmol/L) 104 106 Carbon Dioxide (22 - 30 mmol/L) 26 25 Anion Gap (5 - 16) 6 7 BUN (9 - 20 mg/dL) 26 H 19 Creatinine (0.7 - 1.2 mg/dL) 1.0 0.9 Estimated GFR (>60 ml/min) > 60 > 60 BUN/Creatinine Ratio (7 - 25 %) 26.0 H 21.1 Troponin I (<0.11 ng/ml) < 0.01 TSH (0.270 - 4.200 uIU/mL) 0.566 Free T4 (0.85 - 1.93 ng/dL) 1.47 Coagulation PT (9.4 - 12.5 SEC) 12.1 INR (0.90 - 1.17) 1.11 Hematology CBC w Diff NO MAN DIFF REQ NO MAN DIFF REQ WBC (4.8 - 10.8 /CUMM) 13.2 H 12.6 H RBC (4.70 - 6.10 /CUMM) 3.46 L 4.01 L Hgb (14.0 - 18.0 G/DL) 10.6 L 12.0 L Hct (42 - 52 %) 31.5 L 36.6 L MCV (80.0 - 94.0 FL) 91.3 91.3 MCH (27.0 - 31.0 PG) 30.5 30.0 MCHC (33.0 - 37.0 G/DL) 33.4 32.8 L RDW (11.5 - 14.5 %) 14.0 14.5 Plt Count (130 - 400 /CUMM) 267 221 MPV (7.4 - 10.4 FL) 8.6 8.8 Gran % (42.2 - 75.2 %) 84.8 H 92.6 H Lymphocytes % (20.5 - 51.1 %) 7.1 L 5.6 L Monocytes % (1.7 - 9.3 %) 8.0 1.6 L Eosinophils % (0 - 5 %) 0 0.1 Basophils % (0.0 - 2.0 %) 0.1 0.1 Absolute Granulocytes (1.4 - 6.5 /CUMM) 11.2 H 11.7 H Absolute Lymphocytes (1.2 - 3.4 /CUMM) 0.9 L 0.7 L Absolute Monocytes (0.10 - 0.60 /CUMM) 1.1 H 0.2 Absolute Eosinophils (0.0 - 0.7 /CUMM) 0 0 Absolute Basophils (0.0 - 0.2 /CUMM) 0 0 Assessment and recommendations: 87 y/o M with pmh sig for insulin-dependent diabetes mellitus, hyperlipidemia, hypertension, status post revision of right total knee arthroplasty for fractured femoral component postop day 1. Medicine consult was obtained secondary to patient found bradycardic postoperatively. Thyroid function tests are normal. Patient remained bradycardic in 40s-50s range overnight. His beta-jarvis is on hold. Recommend cardiology evaluation. Postop care per orthopedic. His blood sugars are not under control and the running in 300s. Recommend resuming home dose of metformin and continue the sliding scale insulin. Patient can be continued on his home regimen upon discharge but will recommend outpatient endocrinology evaluation for diabetes control. Continue the rest of the mx. DVT px: Coumadin per Ortho.
[2018-02-27 08:14] LABS: PT 12.1 SEC (9.4-12.5)
[2018-02-27 08:16] LABS: ABSOLUTE BASOPHIL COUNT 0 /CUMM (0.0-0.2); ABSOLUTE EOSINOPHIL COUNT 0 /CUMM (0.0-0.7); ABSOLUTE GRANULOCYTE CT 11.2 /CUMM (1.4-6.5); ABSOLUTE LYMPH COUNT 0.9 /CUMM (1.2-3.4); ABSOLUTE MONOCYTE COUNT 1.1 /CUMM (0.10-0.60); BASOPHIL % 0.1 % (0.0-2.0); EOSINOPHIL % 0 % (0-5); MEAN CORPUSCULAR HGB 30.5 PG (27.0-31.0); MEAN CORPUSCULAR HGB CONC 33.4 G/DL (33.0-37.0); MEAN CORPUSCULAR VOLUME 91.3 FL (80.0-94.0); MEAN PLATELET VOLUME 8.6 FL (7.4-10.4); PLATELET COUNT 267 /CUMM (130-400); RED BLOOD CELL CT 3.46 /CUMM (4.70-6.10); WHITE BLOOD CELL COUNT 13.2 /CUMM (4.8-10.8)
[2018-02-27 08:30] LABS: HEMATOCRIT 31.5 % (42-52)
--- NOTE | 2018-02-27 08:34 | PN- Orthopedic ---
See Addendum Subjective Subjective: No acute events overnight, no chest pain, no palpitations, no episodes of bradycardia or feeling lightheaded or dizzy. No fever no flulike illness. Pain is controlled. Objective Vital Signs and I&Os Vital Signs Date Time Temp Pulse Resp B/P B/P Pulse O2 O2 Flow FiO2 Mean Ox Delivery Rate 02/27 0631 98.1 64 18 124/62 95 Nasal Cannula 02/27 0200 97.8 65 20 114/52 93 Room Air 02/26 2220 97.8 57 18 130/58 96 Nasal Cannula 02/26 1637 97.6 68 18 128/50 97 Nasal 2.0L Cannula Intake & Output 02/27 1600 02/27 0800 02/27 0000 02/26 1600 02/26 0000 Intake Total 600 600 Output Total 350 400 Balance 250 200 Intake, IV 600 600 Output, Urine 350 400 Physical Exam: Well-developed well-nourished no apparent distress. HEENT: Atraumatic, extraocular motion intact Neck: Supple, no lymphadenopathy Respiratory: No respiratory distress Extremities: No edema RIGHT lower extremity dressing in place, Dressing clean dry and intact Mild joint effusion Range of motion is 0-60. Compression wrap in place. ALPS in place Neurovascularly intact distally Bilateral calves are supple, nontender. Neuro: Alert and oriented x3 Psych: Mood affect normal, normal memory normal judgment. Skin: Warm and dry, no rash on exposed skin Results Last 48 Hours of Labs: Laboratory Tests 02/27 02/26 02/26 0700 1700 1114 Chemistry Sodium (137 - 145 mmol/L) Pending 139 Potassium (3.5 - 5.1 mmol/L) Pending 4.6 Chloride (98 - 107 mmol/L) Pending 106 Carbon Dioxide (22 - 30 mmol/L) Pending 25 Anion Gap (5 - 16) Pending 7 BUN (9 - 20 mg/dL) Pending 19 Creatinine (0.7 - 1.2 mg/dL) Pending 0.9 Estimated GFR (>60 ml/min) > 60 BUN/Creatinine Ratio (7 - 25 %) Pending 21.1 Troponin I (<0.11 ng/ml) < 0.01 TSH (0.270 - 4.200 uIU/mL) 0.566 Free T4 (0.85 - 1.93 ng/dL) 1.47 Coagulation PT (9.4 - 12.5 SEC) 12.1 INR (0.90 - 1.17) 1.11 Hematology CBC w Diff Pending NO MAN DIFF REQ WBC (4.8 - 10.8 /CUMM) Pending 12.6 H RBC (4.70 - 6.10 /CUMM) Pending 4.01 L Hgb (14.0 - 18.0 G/DL) Pending 12.0 L Hct (42 - 52 %) Pending 36.6 L MCV (80.0 - 94.0 FL) Pending 91.3 MCH (27.0 - 31.0 PG) Pending 30.0 MCHC (33.0 - 37.0 G/DL) Pending 32.8 L RDW (11.5 - 14.5 %) Pending 14.5 Plt Count (130 - 400 /CUMM) Pending 221 MPV (7.4 - 10.4 FL) Pending 8.8 Gran % (42.2 - 75.2 %) Pending 92.6 H Lymphocytes % (20.5 - 51.1 %) Pending 5.6 L Monocytes % (1.7 - 9.3 %) Pending 1.6 L Eosinophils % (0 - 5 %) Pending 0.1 Basophils % (0.0 - 2.0 %) Pending 0.1 Absolute Granulocytes (1.4 - 6.5 /CUMM) Pending 11.7 H Absolute Lymphocytes (1.2 - 3.4 /CUMM) Pending 0.7 L Lymphocytes (%) 22 Absolute Monocytes (0.10 - 0.60 /CUMM) Pending 0.2 Absolute Eosinophils (0.0 - 0.7 /CUMM) Pending 0 Absolute Basophils (0.0 - 0.2 /CUMM) Pending 0 % Normal PMNs (%) 33 Misc Hematology Test (%) 45 Other Body Source Fluid WBC (0 - 5 /CUMM) 594 H Fld Total RBCs Counted (0 /CUMM) 32810 H Assessment/Plan Assessment/Plan Pt is an 87 year old male POD #1 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 Will follow up labs and EKG. Perioperative antibiotics. Pain medication as needed. Out of bed Physical therapy, weightbearing as tolerated DC IV fluids Regular diet Follow a.m. labs Coumadin for DVT prophylaxis, INR pending ALPS for DVT prophylaxis Regular home meds Dressing change postop day 2 Core Measures Venous Thromboembolism VTE Risk Factors Surgery No Mechanical VTE Prophylaxis d/t N/A MechProphylax Ordered No VTE Pharm Prophylaxis d/t NA PharmProphylax ordered
[2018-02-27 09:16] LABS: GRANULOCYTE % 84.8 % (42.2-75.2)
--- NOTE | 2018-02-27 12:56 | Cons- Cardiology ---
General Information and HPI Consulting Request Date of Consult: 02/27/18 Requested By: Layo SAMAYOA,Arnav Reason for Consult: Bradycardia Source of Information: patient, old records Exam Limitations: no limitations History of Present Illness: The patient is an 87-year-old gentleman with a past medical history of diabetes mellitus, hypertension, hyperlipidemia, who presented for revision of a right total knee arthroplasty. He was noted to have bradycardia postoperatively, with heart rates of high 40s to 50s, and was therefore transferred to telemetry. From a cardiac standpoint, the patient is otherwise asymptomatic and denies symptoms of chest pains, palpitations nor dyspnea currently. He had been evaluated preoperatively by his primary promotions firm accounts manager, and was as well noted to be symptomatic from a cardiac standpoint and active, performing 6 METs of physical activity or greater noted by musculoskeletal symptoms. As an outpatient, his heart rates had been ranging in the high 50s to 60s. This has been while on a regimen of metoprolol at 25 mg daily. Prior outpatient stress testing demonstrated preserved chronotropic competence. Allergies/Medications Allergies: Coded Allergies: No Known Allergies (02/16/18) Home Med List: Amlodipine Besylate 5 MG TABLET 1 TAB PO DAILY CARDIAC (Reported) Aspirin (Ecotrin*) 81 MG TABLET.DR 1 TAB PO 3XW CARDIAC (Reported) Atorvastatin Calcium 80 MG TABLET 1 TAB PO DAILY CHOLESTEROL (Reported) Furosemide 40 MG TABLET 1 TAB PO DAILY CARDIAC (Reported) Insulin Regular (Novolin R Inj) 1,000 UNITS/10 ML DOTTY 76 UNITS SC SEE ADMIN CRITERIA DIABETES (Reported) Losartan Potassium 100 MG TABLET 1 TAB PO DAILY CARDIAC (Reported) Magnesium Oxide (Magnesium) 500 MG CAPSULE 1 CAP PO BID SUPPLEMENT (Reported) Metoprolol Succ XL (Toprol XL) 25 MG TAB 1 TAB PO DAILY CARDIAC (Reported) Multiple Vitamin (Multivitamins) 1 EACH TABLET 1 TAB PO DAILY SUPPLEMENT ( Reported) Psyllium Hydrophylic Muciloid (Metamucil Packet) 3.4 GRAM POWD.PACK SUPPLEMENT (Reported) Current Medications: Current Medications Sig/Aubrey Start time Last Medication Dose Route Stop Time Status Admin Acetaminophen 650 MG ONCE 02/26 0000 DC PO 02/26 2359 Amlodipine Besylate 5 MG DAILY 02/27 0900 AC PO Atorvastatin Calcium 80 MG DAILY 02/27 0900 AC 02/27 PO 1015 Celecoxib 400 MG DAILY 02/27 0900 AC 02/27 PO 1015 Celecoxib 400 MG ONCE 02/26 0000 DC PO 02/26 2359 Docusate Sodium 100 MG BID PRN 02/26 1100 AC PO Furosemide 40 MG DAILY 02/27 0900 AC 02/27 PO 1015 Gabapentin 300 MG ONCE 02/26 0000 DC PO 02/26 2359 Insulin Aspart 0 TIDAC 02/26 1700 AC 02/27 SC 1213 Insulin Aspart 0 TIDAC 02/26 1200 DC SC Losartan Potassium 100 MG DAILY 02/27 0900 AC PO Magnesium Oxide 400 MG BID 02/26 2100 AC 02/27 PO 1015 Morphine Sulfate 2 MG Q3P PRN 02/26 1615 AC IV Ondansetron HCl 4 MG Q6P PRN 02/26 161 AC IV Oxycodone HCl 10 MG ONCE 02/26 0000 DC PO 02/26 2359 Oxycodone/ 1 TAB Q4P PRN 02/26 1615 AC 02/27 Acetaminophen PO 0803 Oxycodone/ 2 TAB Q4P PRN 02/26 1615 AC Acetaminophen PO Polyethylene Glycol 17 GM DAILY PRN 02/26 1100 AC PO Scopolamine HBr 1 PAT ONCE 02/26 0000 DC TOP 02/26 2359 Senna/Docusate Sodium 2 TAB AT BEDTIME NEED.. 02/26 161 AC PO Sodium Chloride 1,000 ML .[id number] 02/26 1615 DC 02/26 IV 1736 Vancomycin HCl 1,750 MG ONCE ONE 02/26 2200 DC 02/26 Sodium Chloride 500 ML IV 02/26 2359 2207 Vancomycin HCl 1,750 MG ONCE 02/26 0000 DC Sodium Chloride 500 ML IV 02/26 2359 Warfarin Sodium 7.5 MG COUMADIN 1700 ONE 02/26 1700 DC 02/26 PO 02/26 1701 1819 Review of Systems Review of Systems: The review of systems is negative for chest pains, palpitations nor lightheadedness. The remainder of the 14 point review of systems is noncontributory with the exception of above. Past History Surgical History Surgical History: hemiarthroplasty Psychosocial History Services at Home: None Smoking Status: Never Smoked Functional Ability ADLs Independent: dressing, eating, toileting, bathing. Ambulation: independent IADLs Independent: shopping, housework, finances, telephone. Exam & Diagnostic Data Vital Signs and I&O Vital Signs Date Time Temp Pulse Resp B/P B/P Pulse O2 O2 Flow FiO2 Mean Ox Delivery Rate 02/27 1015 53 134/50 02/27 1014 53 134/50 02/27 0631 98.1 64 18 124/62 95 Nasal Cannula 02/27 0200 97.8 65 20 114/52 93 Room Air 02/26 2220 97.8 57 18 130/58 96 Nasal Cannula 02/26 1637 97.6 68 18 128/50 97 Nasal 2.0L Cannula Intake & Output 02/27 1600 02/27 0802/27 0000 02/26 1600 02/26 0802/26 0000 Intake Total 600 600 Output Total 350 400 Balance 250 200 Intake, IV 600 600 Output, Urine 350 400 Physical Exam: General: Nontoxic, no apparent distress. HEENT: Sclera and conjunctiva within normal limits, without xanthelasmas. Neck: Carotids 2+ without bruits. Respiratory: Clear to auscultation, air movement is good, without accessory respiratory muscle use. Heart: Regular rate and rhythm, without murmurs, without JVD. Abdomen: Soft, nontender, no masses, normoactive bowel sounds. Extremities: Without clubbing, cyanosis, without edema. Neuro: Nonfocal exam, strength, 5 out of 5 Skin: Within normal limits without lesions. Psych: Mood and affect: Normal Labs/Eduar Results: Laboratory Tests 02/27 02/26 0700 1700 Chemistry Sodium (137 - 145 mmol/L) 136 L 139 Potassium (3.5 - 5.1 mmol/L) 5.0 4.6 Chloride (98 - 107 mmol/L) 104 106 Carbon Dioxide (22 - 30 mmol/L) 26 25 Anion Gap (5 - 16) 6 7 BUN (9 - 20 mg/dL) 26 H 19 Creatinine (0.7 - 1.2 mg/dL) 1.0 0.9 Estimated GFR (>60 ml/min) > 60 > 60 BUN/Creatinine Ratio (7 - 25 %) 26.0 H 21.1 Troponin I (<0.11 ng/ml) < 0.01 TSH (0.270 - 4.200 uIU/mL) 0.566 Free T4 (0.85 - 1.93 ng/dL) 1.47 Coagulation PT (9.4 - 12.5 SEC) 12.1 INR (0.90 - 1.17) 1.11 Hematology CBC w Diff NO MAN DIFF REQ NO MAN DIFF REQ WBC (4.8 - 10.8 /CUMM) 13.2 H 12.6 H RBC (4.70 - 6.10 /CUMM) 3.46 L 4.01 L Hgb (14.0 - 18.0 G/DL) 10.6 L 12.0 L Hct (42 - 52 %) 31.5 L 36.6 L MCV (80.0 - 94.0 FL) 91.3 91.3 MCH (27.0 - 31.0 PG) 30.5 30.0 MCHC (33.0 - 37.0 G/DL) 33.4 32.8 L RDW (11.5 - 14.5 %) 14.0 14.5 Plt Count (130 - 400 /CUMM) 267 221 MPV (7.4 - 10.4 FL) 8.6 8.8 Gran % (42.2 - 75.2 %) 84.8 H 92.6 H Lymphocytes % (20.5 - 51.1 %) 7.1 L 5.6 L Monocytes % (1.7 - 9.3 %) 8.0 1.6 L Eosinophils % (0 - 5 %) 0 0.1 Basophils % (0.0 - 2.0 %) 0.1 0.1 Absolute Granulocytes (1.4 - 6.5 /CUMM) 11.2 H 11.7 H Absolute Lymphocytes (1.2 - 3.4 /CUMM) 0.9 L 0.7 L Absolute Monocytes (0.10 - 0.60 /CUMM) 1.1 H 0.2 Absolute Eosinophils (0.0 - 0.7 /CUMM) 0 0 Absolute Basophils (0.0 - 0.2 /CUMM) 0 0 08/27 1114 Hematology Lymphocytes (%) 22 % Normal PMNs (%) 33 Misc Hematology Test (%) 45 Other Body Source Fluid WBC (0 - 5 /CUMM) 594 H Fld Total RBCs Counted (0 /CUMM) 93587 H Assessment/Plan Assessment/Plan 87-year-old gentleman with a past medical history of diabetes mellitus, hypertension, hyperlipidemia, who presented for revision of a right total knee arthroplasty. He was noted to have bradycardia postoperatively, with heart rates of high 40s to 50s, and was therefore transferred to telemetry. Bradycardia: The patient has mild bradycardia and is asymptomatic from the same. Owing holding his regimen of metoprolol, he has noted improved heart rates, with ranges of 60s. He continues to be asymptomatic from a chest pain/palpitations standpoint. There is no significant dyspnea. Given this, I do not believe that we need to maintain an inpatient observation status for his heart rates. He may be discharged ready from an orthopedic standpoint and will follow-up as an outpatient for further medication titration. Hypertension: The patient has hypertension which has been controlled as outpatient regimen. Him and his bradycardia, we will hold his regimen of metoprolol, and continue losartan and amlodipine. Further titration will be made as an outpatient. Status post knee arthroplasty: Continue treatment as per orthopedics. Thank you for allowing us to participate in the care of your patient. Please do not hesitate to contact us further with any questions. Sincerely, Rayshawn Wheeler MD [facility] Consult Acknowledgment - Thank you for your consult request.
[2018-02-27] MEDS ORDERED: METFORMIN HCL1000 M1 PO (13:19)
[2018-02-27 14:59] VITALS: BP 116/50
[2018-02-27 22:02] VITALS: BP 144/88
[2018-02-28 06:19] VITALS: BP 148/92
[2018-02-28 08:20] LABS: PT 16.5 SEC (9.4-12.5)
--- NOTE | 2018-02-28 10:02 | PN- Orthopedic ---
See Addendum Subjective Subjective: No complaints. Reports pain controlled. He reports he is worried about going home. Out of bed to chair. No dizziness. No shortness of breath. No chest pains. Reports +bm yesterday. Tolerating diet. Objective Vital Signs and I&Os Vital Signs Date Time Temp Pulse Resp B/P B/P Pulse O2 O2 Flow FiO2 Mean Ox Delivery Rate 02/28 0755 88 144/78 02/28 0755 88 144/78 02/28 0619 97.3 15 15 148/92 97 02/27 2202 97.6 56 18 144/88 95 02/27 1459 98.3 53 20 116/50 95 Nasal Cannula 02/27 1015 53 134/50 02/27 1014 53 134/50 Intake & Output 02/28 1600 02/28 0802/28 0000 02/27 1600 02/27 0000 Intake Total 240 240 390 600 600 Output Total 400 350 400 Balance 240 240 -10 250 200 Intake, IV 40 600 600 Intake, Oral 240 240 350 Number 1 Bowel Movements Output, Urine 400 350 400 Patient 235 lb Weight Physical Exam: General - alert & oriented x 3. out of bed to chair. no acute distress. Lungs - clear bilaterally. no w/r/r. Cardiac - s1s2. reg. heart rate 60s mostly by tele monitor Abdomen - soft. nontender. Extremities - warm bilaterally. dressing changed, right leg. incision well approximated with steri strips. some expected edema noted in the operative lower extremity. calves soft and nontender b/l. nvi. Current Medications: Current Medications Sig/Aubrey Start time Last Medication Dose Route Stop Time Status Admin Amlodipine Besylate 5 MG DAILY 02/27 900 AC 02/28 PO 0755 Atorvastatin Calcium 80 MG DAILY 02/27 900 AC 02/28 PO 0752 Celecoxib 400 MG DAILY 02/27 09 AC 02/28 PO 0752 Docusate Sodium 100 MG BID PRN 02/26 1100 AC PO Furosemide 40 MG DAILY 02/27 900 AC 02/28 PO 0752 Insulin Aspart 0 TIDAC 02/26 1700 AC 02/28 SC 0758 Losartan Potassium 100 MG DAILY 02/27 900 AC 02/28 PO 0755 Magnesium Oxide 400 MG BID 02/26 2100 AC 02/28 PO 0752 Metformin HCl 1,000 MG WMBID 02/27 1700 AC 02/27 PO 1650 Morphine Sulfate 2 MG Q3P PRN 02/26 161 AC IV Ondansetron HCl 4 MG Q6P PRN 02/26 161 AC IV Oxycodone/ 1 TAB Q4P PRN 02/26 1615 AC 02/28 Acetaminophen PO 0758 Oxycodone/ 2 TAB Q4P PRN 02/26 1615 AC Acetaminophen PO Polyethylene Glycol 17 GM DAILY PRN 02/26 1100 AC PO Senna/Docusate Sodium 2 TAB AT BEDTIME NEED.. 02/26 161 AC PO Warfarin Sodium 7.5 MG COUMADIN 1700 ONE 02/27 1730 DC 02/27 PO 02/27 Results Last 48 Hours of Labs: Laboratory Tests 02/28 02/27 0655 0700 Chemistry Sodium (137 - 145 mmol/L) 136 L Potassium (3.5 - 5.1 mmol/L) 5.0 Chloride (98 - 107 mmol/L) 104 Carbon Dioxide (22 - 30 mmol/L) 26 Anion Gap (5 - 16) 6 BUN (9 - 20 mg/dL) 26 H Creatinine (0.7 - 1.2 mg/dL) 1.0 Estimated GFR (>60 ml/min) > 60 BUN/Creatinine Ratio (7 - 25 %) 26.0 H Coagulation PT (9.4 - 12.5 SEC) 16.5 H 12.1 INR (0.90 - 1.17) 1.51 H 1.11 Hematology CBC w Diff NO MAN DIFF REQ WBC (4.8 - 10.8 /CUMM) 13.2 H RBC (4.70 - 6.10 /CUMM) 3.46 L Hgb (14.0 - 18.0 G/DL) 10.6 L Hct (42 - 52 %) 31.5 L MCV (80.0 - 94.0 FL) 91.3 MCH (27.0 - 31.0 PG) 30.5 MCHC (33.0 - 37.0 G/DL) 33.4 RDW (11.5 - 14.5 %) 14.0 Plt Count (130 - 400 /CUMM) 267 MPV (7.4 - 10.4 FL) 8.6 Gran % (42.2 - 75.2 %) 84.8 H Lymphocytes % (20.5 - 51.1 %) 7.1 L Monocytes % (1.7 - 9.3 %) 8.0 Eosinophils % (0 - 5 %) 0 Basophils % (0.0 - 2.0 %) 0.1 Absolute Granulocytes (1.4 - 6.5 /CUMM) 11.2 H Absolute Lymphocytes (1.2 - 3.4 /CUMM) 0.9 L Absolute Monocytes (0.10 - 0.60 /CUMM) 1.1 H Absolute Eosinophils (0.0 - 0.7 /CUMM) 0 Absolute Basophils (0.0 - 0.2 /CUMM) 0 02/26 02/26 1700 1114 Chemistry Sodium (137 - 145 mmol/L) 139 Potassium (3.5 - 5.1 mmol/L) 4.6 Chloride (98 - 107 mmol/L) 106 Carbon Dioxide (22 - 30 mmol/L) 25 Anion Gap (5 - 16) 7 BUN (9 - 20 mg/dL) 19 Creatinine (0.7 - 1.2 mg/dL) 0.9 Estimated GFR (>60 ml/min) > 60 BUN/Creatinine Ratio (7 - 25 %) 21.1 Troponin I (<0.11 ng/ml) < 0.01 TSH (0.270 - 4.200 uIU/mL) 0.566 Free T4 (0.85 - 1.93 ng/dL) 1.47 Hematology CBC w Diff NO MAN DIFF REQ WBC (4.8 - 10.8 /CUMM) 12.6 H RBC (4.70 - 6.10 /CUMM) 4.01 L Hgb (14.0 - 18.0 G/DL) 12.0 L Hct (42 - 52 %) 36.6 L MCV (80.0 - 94.0 FL) 91.3 MCH (27.0 - 31.0 PG) 30.0 MCHC (33.0 - 37.0 G/DL) 32.8 L RDW (11.5 - 14.5 %) 14.5 Plt Count (130 - 400 /CUMM) 221 MPV (7.4 - 10.4 FL) 8.8 Gran % (42.2 - 75.2 %) 92.6 H Lymphocytes % (20.5 - 51.1 %) 5.6 L Monocytes % (1.7 - 9.3 %) 1.6 L Eosinophils % (0 - 5 %) 0.1 Basophils % (0.0 - 2.0 %) 0.1 Absolute Granulocytes (1.4 - 6.5 /CUMM) 11.7 H Absolute Lymphocytes (1.2 - 3.4 /CUMM) 0.7 L Lymphocytes (%) 22 Absolute Monocytes (0.10 - 0.60 /CUMM) 0.2 Absolute Eosinophils (0.0 - 0.7 /CUMM) 0 Absolute Basophils (0.0 - 0.2 /CUMM) 0 % Normal PMNs (%) 33 Misc Hematology Test (%) 45 Other Body Source Fluid WBC (0 - 5 /CUMM) 594 H Fld Total RBCs Counted (0 /CUMM) 07149 H Assessment/Plan Assessment/Plan This 87-year-old gentleman with hx of dm, htn, hld, is now POD#2 s/p removal of previously placed unicompartmental arthroplasty, revision total knee arthroplasty, transferred to telemetry post-op for bradycardia which appears stable with HR 60s off metoprolol tolerating diet. apparently taking more carbs than allowed, resulting in hyperglycemia continue accuchecks / ss coverage. metformin restarted yesterday continue to hold metformin due to previous bradycardia pain controlled with percocet dressing changed continue PT f/u labs coumadin accordingly - dvt ppx bowel regime ordered, he had a bm yesterday d/c planning, likely home with services tomorrow if cleared by PT and stable will f/u medical and cardiology recommendations will d/w Core Measures Venous Thromboembolism VTE Risk Factors Surgery No Mechanical VTE Prophylaxis d/t N/A MechProphylax Ordered No VTE Pharm Prophylaxis d/t NA PharmProphylax ordered
--- NOTE | 2018-02-28 12:27 | PN- Medicine Consult ---
Gayathri SAMAYOA,Kip 02/28/18 1227: Assessment/PlanMedical Consult Assessment/Plan Assessment: 87-year-old man with multiple medical problems significant for insulin-dependent diabetes mellitus, hyperlipidemia, and hypertension admitted for elective revision of total right knee arthroplasty. Postoperatively patient was found to be bradycardic for which a medicine consult was placed. Patient states that he feels well and only admits to minor lower extremity pain when he ambulates. Vital signs including heart rate remained within normal limits. Physical examination demonstrates an elderly man in no acute distress with a normal cardiopulmonary examination and a right knee wrapped in sterile dressing without any obvious drainage and bilateral lower extremity skin changes. Significant labs include WBC 13.2 today increased from 12.6 yesterday and hemoglobin 10.6 today lower from 12.0 yesterday. INR remains subtherapeutic at 1.51. X-ray of knee today demonstrates postoperative changes. Clinically patient appears to have resolved any bradycardia issues; cardiology is following patient for this as well. She was seen by endocrinology for further evaluation of his diabetes mellitus whom recommended an insulin regimen. Patient's leukocytosis and anemia are concerning however there is no obvious source of infection or bleeding. Problem list -Status post right total knee revision, postop day #2 -Postoperative bradycardia, resolved -Leukocytosis, possibly reactive -Acute on chronic anemia, possibly dilutional/operative blood loss -Hypertension -Hyperlipidemia -Insulin-dependent diabetes mellitus -Obesity Plan: * Accu-Cheks 3 times a day before meals/at bedtime * Insulin regimen per endocrinology * Continue blood pressure meds as ordered * Continue to hold beta jarvis * Follow recommendations of cardiology and endocrinology * Monitor daily CBC * Daily INR, dose Coumadin * Postoperative care per orthopedics * DVT prophylaxis Subjective Subjective: Patient states that he feels well but metastases to some lower extremity pain on ambulation. He otherwise denies any symptoms such as fever, chills, chest pain, shortness breath, abdominal pain and feels as if he is at his baseline. Review of Systems Constitutional: Reports: see HPI. Objective Last 24 Hrs of Vital Signs/I&O Vital Signs Date Time Temp Pulse Resp B/P B/P Pulse O2 O2 Flow FiO2 Mean Ox Delivery Rate 02/28 1401 97.7 68 18 148/72 93 02/28 0755 88 144/78 02/28 0755 88 144/78 02/28 0619 97.3 15 15 148/92 97 02/27 2202 97.6 56 18 144/88 95 Intake & Output 02/28 1600 02/28 0800 02/28 0000 Intake Total 240 240 Output Total Balance 240 240 Intake, Oral 240 240 Number 1 1 Bowel Movements Patient 106.708 kg Weight Physical Exam Other Physical Findings: General - well developed, obese elderly man in no acute distress HEENT - NCAT, PERRL, EOMI, anicteric sclera Neck - Supple, no JVD, trachea midline Cardio - S1, S2 w/o murmurs/gallops/rubs Resp - CTA bilaterally w/o wheezing/rhochi/crackles GI - soft, nontender, nondistended, bowel sounds present Neuro - Awake and alert, CN II - XII grossly intact Extremities - no edema, pulses intact, bilateral lower extremity skin changes without warmth or drainage Right knee-wrapped in sterile surgical dressing without any obvious drainage Current Medications: Current Medications Sig/Aubrey Start time Last Medication Dose Route Stop Time Status Admin Amlodipine Besylate 5 MG DAILY 02/27 09 AC 02/28 PO 0755 Atorvastatin Calcium 80 MG DAILY 02/27 0900 AC 02/28 PO 0752 Celecoxib 400 MG DAILY 02/27 0900 AC 02/28 PO 0752 Docusate Sodium 100 MG BID PRN 02/26 1100 AC PO Furosemide 40 MG DAILY 02/27 09 AC 02/28 PO 0752 Insulin Aspart 0 TIDAC 02/26 1700 AC 02/28 SC 1224 Losartan Potassium 100 MG DAILY 02/27 09 AC 02/28 PO 0755 Magnesium Oxide 400 MG BID 02/26 2100 AC 02/28 PO 0752 Metformin HCl 1,000 MG WMBID 02/27 1700 AC 02/28 PO 1223 Morphine Sulfate 2 MG Q3P PRN 02/26 1615 AC IV Ondansetron HCl 4 MG Q6P PRN 02/26 1615 AC IV Oxycodone/ 1 TAB Q4P PRN 02/26 1615 AC 02/28 Acetaminophen PO 1227 Oxycodone/ 2 TAB Q4P PRN 02/26 1615 AC Acetaminophen PO Polyethylene Glycol 17 GM DAILY PRN 02/26 1100 AC PO Senna/Docusate Sodium 2 TAB AT BEDTIME NEED.. 02/26 1615 AC PO Warfarin Sodium 5 MG COUMADIN 1700 ONE 02/28 1700 AC PO 02/28 1701 Warfarin Sodium 7.5 MG COUMADIN 1700 ONE 02/27 1730 DC 02/27 PO 02/27 1731 1952 Results Last 24 Hrs Lab/Eduar Results: Laboratory Tests 02/28/18 0655: PT 16.5 H, INR 1.51 H Alan SAMAYOA,Nisa 02/28/18 1249: Attending MD Review Statement Attending Sign Off Attending Cosign Statement: I have: examined this patient, reviewed [facility] EMR data, personally reviewd images, discussd w/resident/PA/FINANCIAL ANALYST INTERN, discussed mgmt plan w/pt, agreed w/resident/ PA/FINANCIAL ANALYST INTERN, amended to note. Other Findings: Patient seen and examined, overall doing better. He worked with physical therapy and after he came back he was complaining of some pain in his right knee. Heart rate is stable in 60s. Blood pressure also stable. Patient continues to have hyperglycemia. He takes a very unusual regimen of Novolin insulin on once daily basis. We have resumed back his metformin. I would recommend getting an endocrinology consult. This was discussed with the surgical PA. Patient's Beta jarvis has been on hold and this was also recommended by the manager environmental health and safety. Would continue to hold beta-jarvis at this time. Blood pressure controlled on the rest of the anti-hypertensive medications. Postop care will be as per orthopedic. Pain control is done with Percocet. DVT prophylaxis: Patient was started on Coumadin per orthopedic. Please follow INR and adjust Coumadin accordingly.
--- NOTE | 2018-02-28 13:04 | Cons- Endocrinology ---
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 He manages his diabetes by taking 70 units of Novolin NPH insulin once a day in the morning. He is also on metformin 1000 mg twice a day. The patient came into the hospital for knee surgery. His blood sugars have been found to be high. In speaking with the patient he states he gets low sugar but only very occasionally. He has given up on checking his sugars because he states they always were fairly good. He feels he is able to detect the lows because he begins to perspire. The patient remains active driving the car all the way to [place]. He lives with his . He denies any diabetic eye disease. He did have cataract surgery. He denies any diabetic kidney disease. The patient was placed on telemetry because of bradycardia. His metoprolol was stopped. Since coming to the hospital the patient sugars have been high in the 250-320 range. He is presently on metformin 1000 mg twice a day and a relatively low dose of NovoLog before he eats. Allergies/Medications Allergies: Coded Allergies: No Known Allergies (02/16/18) Home Med List: Amlodipine Besylate 5 MG TABLET 1 TAB PO DAILY CARDIAC (Reported) Aspirin (Ecotrin*) 81 MG TABLET.DR 1 TAB PO 3XW CARDIAC (Reported) Atorvastatin Calcium 80 MG TABLET 1 TAB PO DAILY CHOLESTEROL (Reported) Furosemide 40 MG TABLET 1 TAB PO DAILY CARDIAC (Reported) Insulin Regular (Novolin R Inj) 1,000 UNITS/10 ML DOTTY 76 UNITS SC SEE ADMIN CRITERIA DIABETES (Reported) Losartan Potassium 100 MG TABLET 1 TAB PO DAILY CARDIAC (Reported) Magnesium Oxide (Magnesium) 500 MG CAPSULE 1 CAP PO BID SUPPLEMENT (Reported) Metformin HCl 1,000 MG TABLET 1 TAB PO BID dm (Reported) Metoprolol Succ XL (Toprol XL) 25 MG TAB 1 TAB PO DAILY CARDIAC (Reported) Multiple Vitamin (Multivitamins) 1 EACH TABLET 1 TAB PO DAILY SUPPLEMENT ( Reported) Psyllium Hydrophylic Muciloid (Metamucil Packet) 3.4 GRAM POWD.PACK SUPPLEMENT (Reported) Past History Medical History Cardiovascular: hypertension Surgical History Surgical History: cholecystectomy, hemiarthroplasty Psychosocial History Services at Home: None Smoking Status: Never Smoked Functional Ability ADLs Independent: dressing, eating, toileting, bathing. Ambulation: independent IADLs Independent: shopping, housework, finances, telephone. Exam & Diagnostic Data Last 24 Hrs of Vital Signs/I&O Vital Signs Date Time Temp Pulse Resp B/P B/P Pulse O2 O2 Flow FiO2 Mean Ox Delivery Rate 02/28 0755 88 144/78 02/28 0755 88 144/78 02/28 0619 97.3 15 15 148/92 97 02/27 2202 97.6 56 18 144/88 95 02/27 1459 98.3 53 20 116/50 95 Nasal Cannula Intake & Output 02/28 1600 02/28 0802/28 0000 Intake Total 240 240 Output Total Balance 240 240 Intake, Oral 240 240 Number 1 Bowel Movements Patient 235 lb Weight Vital Signs Date Time Temp Pulse Resp B/P B/P Pulse O2 O2 Flow FiO2 Mean Ox Delivery Rate 02/28 0755 88 144/78 02/28 0755 88 144/78 02/28 0619 97.3 15 15 148/92 97 02/27 2202 97.6 56 18 144/88 95 02/27 1459 98.3 53 20 116/50 95 Nasal Cannula Intake & Output 02/28 1600 02/28 0800 02/28 0000 Intake Total 240 240 Output Total Balance 240 240 Intake, Oral 240 240 Number 1 Bowel Movements Patient 235 lb Weight Physical Exam General Appearance: alert, awake, comfortable Head: normal appearance Eyes: Bilateral: normal appearance. Neck: normal inspection Respiratory: normal breath sounds Cardiovascular: regular rate/rhythm Extremities: pedal edema Labs/Eduar Results: Laboratory Tests 02/28 02/27 0655 0700 Chemistry Sodium (137 - 145 mmol/L) 136 L Potassium (3.5 - 5.1 mmol/L) 5.0 Chloride (98 - 107 mmol/L) 104 Carbon Dioxide (22 - 30 mmol/L) 26 Anion Gap (5 - 16) 6 BUN (9 - 20 mg/dL) 26 H Creatinine (0.7 - 1.2 mg/dL) 1.0 Estimated GFR (>60 ml/min) > 60 BUN/Creatinine Ratio (7 - 25 %) 26.0 H Coagulation PT (9.4 - 12.5 SEC) 16.5 H 12.1 INR (0.90 - 1.17) 1.51 H 1.11 Hematology CBC w Diff NO MAN DIFF REQ WBC (4.8 - 10.8 /CUMM) 13.2 H RBC (4.70 - 6.10 /CUMM) 3.46 L Hgb (14.0 - 18.0 G/DL) 10.6 L Hct (42 - 52 %) 31.5 L MCV (80.0 - 94.0 FL) 91.3 MCH (27.0 - 31.0 PG) 30.5 MCHC (33.0 - 37.0 G/DL) 33.4 RDW (11.5 - 14.5 %) 14.0 Plt Count (130 - 400 /CUMM) 267 MPV (7.4 - 10.4 FL) 8.6 Gran % (42.2 - 75.2 %) 84.8 H Lymphocytes % (20.5 - 51.1 %) 7.1 L Monocytes % (1.7 - 9.3 %) 8.0 Eosinophils % (0 - 5 %) 0 Basophils % (0.0 - 2.0 %) 0.1 Absolute Granulocytes (1.4 - 6.5 /CUMM) 11.2 H Absolute Lymphocytes (1.2 - 3.4 /CUMM) 0.9 L Absolute Monocytes (0.10 - 0.60 /CUMM) 1.1 H Absolute Eosinophils (0.0 - 0.7 /CUMM) 0 Absolute Basophils (0.0 - 0.2 /CUMM) 0 08/ 1700 Chemistry Sodium (137 - 145 mmol/L) 139 Potassium (3.5 - 5.1 mmol/L) 4.6 Chloride (98 - 107 mmol/L) 106 Carbon Dioxide (22 - 30 mmol/L) 25 Anion Gap (5 - 16) 7 BUN (9 - 20 mg/dL) 19 Creatinine (0.7 - 1.2 mg/dL) 0.9 Estimated GFR (>60 ml/min) > 60 BUN/Creatinine Ratio (7 - 25 %) 21.1 Troponin I (<0.11 ng/ml) < 0.01 TSH (0.270 - 4.200 uIU/mL) 0.566 Free T4 (0.85 - 1.93 ng/dL) 1.47 Hematology CBC w Diff NO MAN DIFF REQ WBC (4.8 - 10.8 /CUMM) 12.6 H RBC (4.70 - 6.10 /CUMM) 4.01 L Hgb (14.0 - 18.0 G/DL) 12.0 L Hct (42 - 52 %) 36.6 L MCV (80.0 - 94.0 FL) 91.3 MCH (27.0 - 31.0 PG) 30.0 MCHC (33.0 - 37.0 G/DL) 32.8 L RDW (11.5 - 14.5 %) 14.5 Plt Count (130 - 400 /CUMM) 221 MPV (7.4 - 10.4 FL) 8.8 Gran % (42.2 - 75.2 %) 92.6 H Lymphocytes % (20.5 - 51.1 %) 5.6 L Monocytes % (1.7 - 9.3 %) 1.6 L Eosinophils % (0 - 5 %) 0.1 Basophils % (0.0 - 2.0 %) 0.1 Absolute Granulocytes (1.4 - 6.5 /CUMM) 11.7 H Absolute Lymphocytes (1.2 - 3.4 /CUMM) 0.7 L Absolute Monocytes (0.10 - 0.60 /CUMM) 0.2 Absolute Eosinophils (0.0 - 0.7 /CUMM) 0 Absolute Basophils (0.0 - 0.2 /CUMM) 0 Assessment/Plan Assessment/Plan This 87-year-old male has a long-standing history of diabetes type 2 associated with obesity. At home he manages his diabetes on one injection of NPH insulin in the morning. He also takes metformin 1000 mg twice a day. He gets occasional symptomatic lows but is given up on checking his sugars and we do not know how often he actually has low sugar. Taking a single dose of NPH insulin this large in the morning would create an increased risk of hypoglycemia later in the day. In the patient and his age group we want to avoid hypoglycemia at all costs and maintaining a normal hemoglobin A1c is much less important because of his short expected life span. In the hospital we should place the patient on Levemir 12 units twice a day. In addition we should change his sliding scale NovoLog before meals. Sliding scale NovoLog before meals should be 80-150 give 4 units NovoLog, 151-200 give 6 units NovoLog, 201-250 give 8 units NovoLog, 251 - 300 give 9 units NovoLog, 301-350 give 10 units NovoLog, 351-400 give 11 units NovoLog. The patient can stay on metformin 1000 mg twice a day along with his insulin. A separate bedtime sliding scale NovoLog should be written. Sliding scale NovoLog at bedtime should be less than 250 give no insulin, 251-300 give 2 units NovoLog, 301-350 give 3 units NovoLog, 351-400 give 4 units NovoLog. Consult Acknowledgment - Thank you for your consult request.
[2018-02-28 14:01] VITALS: BP 148/72
--- NOTE | 2018-02-28 15:06 | RADIOLOGY REPORT ---
EXAMINATION: XR KNEE, RIGHT CLINICAL INFORMATION: Status post right total knee arthroplasty revision. COMPARISON: None. TECHNIQUE: AP and lateral views of the right knee were obtained. FINDINGS: There are sequelae of a total knee arthroplasty. The hardware appears intact. There are no acute osseous findings. There are postoperative changes in the periarticular soft tissues. IMPRESSION: 1. X-rays of the knee demonstrating sequelae of a right total knee arthroplasty.
[2018-02-28 21:47] VITALS: BP 146/56
[2018-03-01 06:47] VITALS: BP 162/60
[2018-03-01 07:37] LABS: PT 35.2 SEC (9.4-12.5)
[2018-03-01 08:12] LABS: ABSOLUTE BASOPHIL COUNT 0.1 /CUMM (0.0-0.2); ABSOLUTE EOSINOPHIL COUNT 0.3 /CUMM (0.0-0.7); ABSOLUTE GRANULOCYTE CT 5.8 /CUMM (1.4-6.5); ABSOLUTE LYMPH COUNT 1.3 /CUMM (1.2-3.4); BASOPHIL % 0.6 % (0.0-2.0); EOSINOPHIL % 3.7 % (0-5); GRANULOCYTE % 68.9 % (42.2-75.2); HEMATOCRIT 29.9 % (42-52); MEAN CORPUSCULAR HGB 30.4 PG (27.0-31.0); MEAN CORPUSCULAR HGB CONC 33.8 G/DL (33.0-37.0); MEAN PLATELET VOLUME 8.6 FL (7.4-10.4); PLATELET COUNT 264 /CUMM (130-400); RBC DISTRIBUTION WIDTH 14.3 % (11.5-14.5); RED BLOOD CELL CT 3.33 /CUMM (4.70-6.10); WHITE BLOOD CELL COUNT 8.5 /CUMM (4.8-10.8)
--- NOTE | 2018-03-01 08:12 | PN- Diabetes ---
Assessment/Plan Diabetes Assessment: This 87-year-old male has a long-standing history of diabetes mellitus type 2 associated with obesity. He manages his diabetes by taking 70 units of Novolin NPH insulin once a day in the morning. He was also on metformin 1000 mg twice a day. The patient feels okay except for some pain in the right knee. He is eating okay. The changes I recommended and his insulin yesterday were not instituted because I did not realize he does not have house staff coverage. The patient's blood sugars remained high yesterday during the day. He was on sliding scale NovoLog starting with 2 units for 151-200, and 4 units for 201- 250. He is also on metformin thousand milligrams twice a day. This morning however his fingerstick blood sugar is 188. Plan: Once again I do not feel this patient should be using a large dose of NPH which was 70 units once a day in the morning prior to admission. Suggest begin Levemir 16 units each a.m. We will continue the present sliding scale NovoLog. Eventually we would like to discontinue the sliding scale NovoLog. Orders will be entered in the computer. As an outpatient the patient could benefit from being on other medications including Jardiance. This would have to be initiated carefully to avoid dehydration. Subjective Subjective: Complains of pain right knee Review of Systems Constitutional: Denies: chills, fever. Cardiovascular: Denies: chest pain. Respiratory: Denies: cough, short of breath. Genitourinary: Reports: no symptoms. Objective Last 24 Hrs of Vital Signs/I&O Vital Signs Date Time Temp Pulse Resp B/P B/P Pulse O2 O2 Flow FiO2 Mean Ox Delivery Rate 03/01 0647 98.1 82 18 162/60 96 Room Air 02/28 2147 98.2 73 12 146/56 95 Room Air 02/28 1600 96 02/28 1401 97.7 68 18 148/72 93 Intake & Output 03/01 1600 03/01 0800 03/01 0000 Intake Total 120 120 Output Total Balance 120 120 Intake, Oral 120 120 Vital Signs Date Time Temp Pulse Resp B/P B/P Pulse O2 O2 Flow FiO2 Mean Ox Delivery Rate 03/01 0647 98.1 82 18 162/60 96 Room Air 02/28 2147 98.2 73 12 146/56 95 Room Air 02/28 1600 96 02/28 1401 97.7 68 18 148/72 93 Intake & Output 03/01 1600 03/01 0800 03/01 0000 Intake Total 120 120 Output Total Balance 120 120 Intake, Oral 120 120 Physical Exam General Appearance: alert, awake Head: normal appearance Neck: normal inspection Cardiovascular: regular rate/rhythm Extremities: swelling (lower legs) Current Medications: Current Medications Sig/Aubrey Start time Last Medication Dose Route Stop Time Status Admin Amlodipine Besylate 5 MG DAILY 02/27 900 AC 02/28 PO 075 Atorvastatin Calcium 80 MG DAILY 02/27 900 AC 02/28 PO 075 Celecoxib 400 MG DAILY 02/27 900 AC 02/28 PO 075 Docusate Sodium 100 MG BID PRN 02/26 1100 AC PO Furosemide 40 MG DAILY 02/27 900 AC 02/28 PO 075 Insulin Aspart 0 TIDAC 02/26 1700 AC 02/28 SC 1736 Losartan Potassium 100 MG DAILY 02/27 900 AC 02/28 PO 0755 Magnesium Oxide 400 MG BID 02/26 2100 AC 02/28 PO 2058 Metformin HCl 1,000 MG WMBID 02/27 1700 AC 02/28 PO 1735 Morphine Sulfate 2 MG Q3P PRN 02/26 1615 AC IV Ondansetron HCl 4 MG Q6P PRN 02/26 1615 AC IV Oxycodone/ 1 TAB Q4P PRN 02/26 1615 AC 02/28 Acetaminophen PO 2058 Oxycodone/ 2 TAB Q4P PRN 02/26 1615 AC Acetaminophen PO Polyethylene Glycol 17 GM DAILY PRN 02/26 1100 AC PO Senna/Docusate Sodium 2 TAB AT BEDTIME NEED.. 02/26 1615 AC PO Warfarin Sodium 5 MG COUMADIN 1700 ONE 02/28 1700 DC 02/28 PO 02/28 1701 1735
--- NOTE | 2018-03-01 09:20 | PN- Medicine Consult ---
Gayathri SAMAYOAKip 03/01/18 0919: Assessment/PlanMedical Consult Assessment/Plan Assessment: 87-year-old man with multiple medical problems significant for insulin-dependent diabetes mellitus, hyperlipidemia, and hypertension admitted for elective revision of total right knee arthroplasty. Postoperatively patient was found to be bradycardic for which a medicine consult was placed. Early this morning patient reports he awoke to have a formed bowel movement around 4 AM. When he woke up several hours later he had another loose brown nonbloody bowel movement. Since that time he admits to feeling "woozy". Vital signs remain within normal limits. Physical examination remains unremarkable. Telemetry demonstrates heart rates within acceptable limits without any episodes of bradycardia. Labs today demonstrate normalization of his WBC count and mild decrease of the already low hemoglobin level without any evidence bleeding. INR was mildly supratherapeutic today at 3.13 Patient may be mildly dehydrated for which oral intake of fluids was encouraged orthostatic vitals should be checked. If patient should have further episodes of diarrhea consider checking a C. difficile toxin. Patient's diarrhea is likely due to recent use of antibiotics versus C. difficile colitis. Patient currently is on assist upon and will continue to work with physical therapy and will benefit from home physical therapy upon discharge. Problem list -Status post right total knee revision, postop day #3 -Postoperative bradycardia, resolved -New diarrhea, likely antibiotic associated -Leukocytosis, possibly reactive - Now normal -Acute on chronic anemia, possibly dilutional/operative blood loss, stable -Hypertension -Hyperlipidemia -Insulin-dependent diabetes mellitus -Obesity Plan: * Check orthostatic blood pressures * Encourage intake of fluids by mouth * Consider checking C. difficile toxin should patient have further diarrhea, fever, or abdominal pain * Accu-Cheks 3 times a day before meals/at bedtime * Insulin regimen per endocrinology * Continue blood pressure meds as ordered * Continue to hold beta jarvis * Follow recommendations of cardiology and endocrinology * Monitor daily CBC * Daily INR, dose Coumadin * Postoperative care per orthopedics * DVT prophylaxis Plan: as above Subjective Subjective: Patient seen and examined. Patient is seen sitting upright in his chair at bedside sleeping. He appears well and in no acute distress. He reports feeling woozy this morning which is new for him. He woke around 4 AM to have a formed bowel movement and again had a second bowel movement several hours later that was characterized as loose, brown, nonbloody, [id number]. He otherwise feels well and has no complaints. He denies any fever, chills, chest pain, shortness of breath, or abdominal pain. Review of Systems Constitutional: Reports: see HPI. Objective Last 24 Hrs of Vital Signs/I&O Vital Signs Date Time Temp Pulse Resp B/P B/P Pulse O2 O2 Flow FiO2 Mean Ox Delivery Rate 03/01 828 90 160/78 03/01 0828 90 160/78 03/01 0647 98.1 82 18 162/60 96 Room Air 02/28 2147 98.2 73 12 146/56 95 Room Air 02/28 1600 96 02/28 1401 97.7 68 18 148/72 93 Intake & Output 03/01 1600 03/01 0803/01 0000 Intake Total 120 120 Output Total Balance 120 120 Intake, Oral 120 120 Physical Exam Other Physical Findings: General - well developed, obese elderly man in no acute distress HEENT - NCAT, PERRL, EOMI, anicteric sclera Neck - Supple, no JVD, trachea midline Cardio - S1, S2 w/o murmurs/gallops/rubs Resp - CTA bilaterally w/o wheezing/rhochi/crackles GI - soft, nontender, nondistended, bowel sounds present Neuro - Awake and alert, CN II - XII grossly intact Extremities - no edema, pulses intact, bilateral lower extremity skin changes without warmth or drainage Right knee-wrapped in sterile surgical dressing without any obvious drainage Current Medications: Current Medications Sig/Aubrey Start time Last Medication Dose Route Stop Time Status Admin Amlodipine Besylate 5 MG DAILY 02/27 900 AC 03/01 PO 827 Atorvastatin Calcium 80 MG DAILY 02/27 900 AC 03/01 PO 827 Celecoxib 400 MG DAILY 02/27 900 AC 03/01 PO 826 Docusate Sodium 100 MG BID PRN 02/26 1100 AC PO Furosemide 40 MG DAILY 02/27 900 AC 03/01 PO 827 Insulin Aspart 0 TIDAC 02/26 1700 AC 03/01 SC 826 Insulin Detemir 14 UNITS DAILY 03/01 900 AC 03/01 SC 0834 Losartan Potassium 100 MG DAILY 02/27 900 AC 03/01 PO 827 Magnesium Oxide 400 MG BID 02/26 2100 AC 03/01 PO 827 Metformin HCl 1,000 MG WMBID 02/27 1700 AC 02/28 PO 1735 Morphine Sulfate 2 MG Q3P PRN 02/26 161 AC IV Ondansetron HCl 4 MG Q6P PRN 02/26 161 AC IV Oxycodone/ 1 TAB Q4P PRN 02/26 1615 AC 03/01 Acetaminophen PO 0828 Oxycodone/ 2 TAB Q4P PRN 02/26 161 AC Acetaminophen PO Polyethylene Glycol 17 GM DAILY PRN 02/26 1100 AC PO Senna/Docusate Sodium 2 TAB AT BEDTIME NEED.. 02/26 161 AC PO Warfarin Sodium 5 MG COUMADIN 1700 ONE 02/28 1700 DC 02/28 PO 02/28 1701 1735 Results Last 24 Hrs Lab/Eduar Results: Laboratory Tests 03/01/18 0634: Anion Gap 3 L, Estimated GFR > 60, BUN/Creatinine Ratio 21.0, PT 35.2 H, INR 3.19 H, CBC w Diff NO MAN DIFF REQ, RBC 3.33 L, MCV 90.0, MCH 30.4, MCHC 33.8, RDW 14.3, MPV 8.6, Gran % 68.9, Lymphocytes % 15.5 L, Monocytes % 11.3 H, Eosinophils % 3.7, Basophils % 0.6, Absolute Granulocytes 5.8, Absolute Lymphocytes 1.3, Absolute Monocytes 1.0 H, Absolute Eosinophils 0.3, Absolute Basophils 0.1 Alan SAMAYOA,[facility] 03/01/18 1408: Attending MD Review Statement Attending Sign Off Attending Cosign Statement: I have: examined this patient, [facility], personally reviewd images, discussd w/resident/PA/WATCH MECHANIC, discussed mgmt plan w/CM, discussed mgmt plan w/pt, agreed w/resident/PA/WATCH MECHANIC, amended to note. Other Findings: Patient seen and examined, overall doing okay except that he is upset that he is not getting enough physical therapy here. His heart rate is actually now running in 80s-90s. His blood sugar in the morning was better controlled with Levemir. Endocrinology does recommend Levemir and then likely changing his outpatient schedule but apparently patient is reluctant to do that and he wants to go back on his home dose of Novolin high-dose in the morning. I also spoke with Dr. Wooten from cardiology and as per his recommendations we will resume back his beta-jarvis secondary to the fact that his heart rate now improved to 80s-90s. I discussed all this with the surgical PA. Patient is otherwise medically stable for discharge today. DVT prophylaxis: Patient on Coumadin per orthopedic.
--- NOTE | 2018-03-01 13:02 | PN- Orthopedic ---
See Addendum Subjective Subjective: Awake, oob in chair Ambulated with PT Cleared for discharge home with services Pain is well controlled with current regimen +BM today - one loose stool this am, currently eating and feels fine Objective Vital Signs and I&Os Vital Signs Date Time Temp Pulse Resp B/P B/P Pulse O2 O2 Flow FiO2 Mean Ox Delivery Rate 03/01 0828 90 160/78 03/01 0828 90 160/78 03/01 0647 98.1 82 18 162/60 96 Room Air 02/28 2147 98.2 73 12 146/56 95 Room Air 02/28 1600 96 02/28 1401 97.7 68 18 148/72 93 Intake & Output 03/01 0000 02/28 0000 Intake Total 120 120 240 240 Output Total Balance 120 120 240 240 Intake, Oral 120 120 240 240 Number 1 1 Bowel Movements Patient 235 lb Weight Physical Exam: afebrile, vss HR 90 - regular bp 160/78 General: alert and oriented times three Chest: clear anteriorly bilaterally, RRR Abd: soft, good bs Ext: warm, chronic edema BLE unchanged per patient, normosensate, no calf tenderness Wd: incision looks clean and dry, no erythema or drainage Current Medications: Current Medications Sig/Aubrey Start time Last Medication Dose Route Stop Time Status Admin Amlodipine Besylate 5 MG DAILY 02/27 900 AC 03/01 PO 827 Atorvastatin Calcium 80 MG DAILY 02/27 900 AC 03/01 PO 827 Celecoxib 400 MG DAILY 02/27 900 AC 03/01 PO 826 Docusate Sodium 100 MG BID PRN 02/26 1100 AC PO Furosemide 40 MG DAILY 02/27 09 AC 03/01 PO 827 Insulin Aspart 0 TIDAC 02/26 1700 AC 03/01 SC 1223 Insulin Detemir 14 UNITS DAILY 03/01 09 AC 03/01 SC 0834 Losartan Potassium 100 MG DAILY 02/27 900 AC 03/01 PO 827 Magnesium Oxide 400 MG BID 02/26 2100 AC 03/01 PO 827 Metformin HCl 1,000 MG WMBID 02/27 1700 AC 03/01 PO 1223 Morphine Sulfate 2 MG Q3P PRN 02/26 1615 AC IV Ondansetron HCl 4 MG Q6P PRN 02/26 1615 AC IV Oxycodone/ 1 TAB Q4P PRN 02/26 1615 AC 03/01 Acetaminophen PO 1224 Oxycodone/ 2 TAB Q4P PRN 02/26 1615 AC Acetaminophen PO Polyethylene Glycol 17 GM DAILY PRN 02/26 1100 AC PO Senna/Docusate Sodium 2 TAB AT BEDTIME NEED.. 02/26 1615 AC PO Warfarin Sodium 5 MG COUMADIN 1700 ONE 02/28 1700 DC 02/28 PO 02/28 1701 1735 Results Last 48 Hours of Labs: Laboratory Tests 03/01 02/28 0634 0655 Chemistry Sodium (137 - 145 mmol/L) 137 Potassium (3.5 - 5.1 mmol/L) 4.6 Chloride (98 - 107 mmol/L) 105 Carbon Dioxide (22 - 30 mmol/L) 29 Anion Gap (5 - 16) 3 L BUN (9 - 20 mg/dL) 21 H Creatinine (0.7 - 1.2 mg/dL) 1.0 Estimated GFR (>60 ml/min) > 60 BUN/Creatinine Ratio (7 - 25 %) 21.0 Coagulation PT (9.4 - 12.5 SEC) 35.2 H 16.5 H INR (0.90 - 1.17) 3.19 H 1.51 H Hematology CBC w Diff NO MAN DIFF REQ WBC (4.8 - 10.8 /CUMM) 8.5 RBC (4.70 - 6.10 /CUMM) 3.33 L Hgb (14.0 - 18.0 G/DL) 10.1 L Hct (42 - 52 %) 29.9 L MCV (80.0 - 94.0 FL) 90.0 MCH (27.0 - 31.0 PG) 30.4 MCHC (33.0 - 37.0 G/DL) 33.8 RDW (11.5 - 14.5 %) 14.3 Plt Count (130 - 400 /CUMM) 264 MPV (7.4 - 10.4 FL) 8.6 Gran % (42.2 - 75.2 %) 68.9 Lymphocytes % (20.5 - 51.1 %) 15.5 L Monocytes % (1.7 - 9.3 %) 11.3 H Eosinophils % (0 - 5 %) 3.7 Basophils % (0.0 - 2.0 %) 0.6 Absolute Granulocytes (1.4 - 6.5 /CUMM) 5.8 Absolute Lymphocytes (1.2 - 3.4 /CUMM) 1.3 Absolute Monocytes (0.10 - 0.60 /CUMM) 1.0 H Absolute Eosinophils (0.0 - 0.7 /CUMM) 0.3 Absolute Basophils (0.0 - 0.2 /CUMM) 0.1 Assessment/Plan Assessment/Plan 87yo male pod 3 s/p R TKR, post op bradycardia now resolved Looks good from a surgical standpoint Discharge home with services INR therapeutic at 3.19 - will give coumadin 2.5 mg po today then increase to 5mg tomorrow Continue to follow daily INR until stable Cleared by PT for discharge home with services - nursing care and home PT set up ?restart metoprolol - Discussed with medical team - recommendation is to continue to hold and will be restarted as an outpatient. Discussed diabetic meds with Dr Hurst - he has spent a lot of time with the patient and gone over a new regimen. Pt is not interested at this time in making any home changes. It is recommended that he follow up with Dr Hurst within two weeks of discharge for a recording device to be placed for one week to help manage beter control. No new changes to current diabetic regimen at discharge per the patients wishes Core Measures Venous Thromboembolism VTE Risk Factors Surgery No Mechanical VTE Prophylaxis d/t N/A MechProphylax Ordered No VTE Pharm Prophylaxis d/t NA PharmProphylax ordered
[2018-03-01] MEDS ORDERED: PERCOCET 5-3251 EACH PO (13:37)
[2018-03-01] MEDS ORDERED: TYLENOL EXTRA500 M2 PO (13:37)
[2018-03-01] MEDS ORDERED: COUMADIN5 M2 PO (13:59)
[2018-03-01] MEDS ORDERED: TOPROL XL25 M1 PO (14:11)
[2018-03-01 14:36] VITALS: BP 138/64
[2018-03-01 14:38] VITALS: BP 132/74
== END 2018-03-01 15:10 | disposition home health service (06) | DRG 467 ==
LOC: SDA 01:17 → 1NO 01:17 → CANRESERV 13:18 → ENRESERV 13:18 → EDBEDREQ 14:47 → ENRESERV 15:00 → ENTRNSPT 15:17 → 1NO 15:25 → EDTRNSPT 15:30 → EDTRNSPTSTS 15:30 → CMPTRNSPT 15:35 → ENTRNSPT 03-01 14:25 → 1NO 03-01 15:10 → CMPTRNSPT 03-01 15:13
PROVIDERS: Nurse Practitioner; Physician Assistant; Physician Assistant Surgical
PROC: 0SPC0JZ Removal of Synthetic Substitute from Right Knee Joint, Open Approach (ICD-10-PCS; principal; 2018-02-26)
PROC: 0SRC0J9 Replacement of Right Knee Joint with Synthetic Substitute, Cemented, Open Approach (ICD-10-PCS; 2018-02-26)
PROC: 3E0T3BZ Introduction of Anesthetic Agent into Peripheral Nerves and Plexi, Percutaneous Approach (ICD-10-PCS; 2018-02-26)
DX: T84.012A Broken internal right knee prosthesis, initial encounter (principal); I97.89 Other postprocedural complications and disorders of the circulatory system, not elsewhere classified; Z96.651 Presence of right artificial knee joint; E11.9 Type 2 diabetes mellitus without complications; Z79.4 Long term (current) use of insulin; I87.2 Venous insufficiency (chronic) (peripheral); I10 Essential (primary) hypertension; E78.5 Hyperlipidemia, unspecified; Z90.49 Acquired absence of other specified parts of digestive tract; E66.9 Obesity, unspecified; Z68.35 Body mass index [BMI] 35.0-35.9, adult
CPT/HCPCS: 1NP; 87075; 36415; 36592; 73560-RT; 82436; 93005; 93010; 97110-GO; 97116-GO; 97161-GP; 97530-GO; C1713; C9290; J1100; J3370; J3490; J7040